=== PATIENT | female | born 1980 | race Caucasian/White ===

== ENCOUNTER 2024-03-02 08:00 | Outpatient (RCR) | payer BC, SELFPAY ==
--- NOTE | 2024-03-02 09:00 | BH.SGPN.GN ---
Behaviors/Verbalizations/Mental Status: [] Eye contact is good. Motor activity is appropriate. Appearance is casual. Speech is Appropriate. Mood is anxious. Affect is congruent. Thoughts are linear and logical. No evidence of psychosis. Reviewed daily check in sheet and no reports of suicidal ideations or intent. Client Response/Progress/Benefit: [] Pt participated at times during the group discussions. Attentive. Today is pt?s first day in IOP. She briefly discussed her reasons for entering IOP. She reports significant anxiety, panic attacks, and depression which has been impacting her functioning at home and work. Currently on leave from work due to mental health. Limited benefit as this was pt?s first day in IOP. Will continue in IOP to maintain safety, prevent decompensation/re-admission to psych unit, and improve functioning. Narrative Note: []
--- NOTE | 2024-03-02 10:15 | BH.SGPN.GN ---
Behaviors/Verbalizations/Mental Status: []Eye contact is good. Motor activity is appropriate. Appearance is neat Speech is Appropriate. Mood is anxious. Affect is congruent. Thoughts are linear and logical. No evidence of psychosis. Client Response/Progress/Benefit: [] Pt was engaged and an active participant throughout, providing input and taking notes. Participated throughout interactive discussion on defining anxiety and identifying cognitive and physiological symptoms of anxiety. Group discussed the role of anxiety on isolation, avoidance, and who this emotion impacts their ability to start and complete activities/goals. Pt identified their physical/physiological signs of anxiety (i.e. sweating, heart palpitations, heightened awareness, and dizziness). Pt identified safety behaviors (i,e reassurance seeking, pacing, and re-reading.) Benefited from increased awareness and insight on anxiety and its impact. Will continue in IOP to prevent decompensation/re-hospitalization, gain healthy coping skills, and improve daily functioning. Narrative Note: []
--- NOTE | 2024-03-02 11:15 | BH.SGPN.GN ---
Behaviors/Verbalizations/Mental Status: []Pt alert and oriented, neatly dressed and groomed. Eye contact good. Motor activity appropriate. Speech within normal limits. Affect congruent, mood euthymic and anxious. Thoughts linear, logical, no signs of hallucinations or delusions. Client Response/Progress/Benefit: [] Pt was an active participant AEB pt providing input and listening attentively to peers. Attentive during psychoeducation on mindfulness coping skills and their impact on reducing anxiety and improving overall mental health wellness. Group was able to identify self-soothing and mind-based coping skills which included: 5-senses, meditation, deep breathing, TIPP, thought challenging, and progressive muscle relaxation. Pt also participated with peers in practicing mindfulness skills in session including deep breathing. Pt would like to work on avoiding numbing activities to manage anxiety. Appeared to benefit from increasing repertoire of anxiety reduction skills. Pt will continue in IOP tx to prevent decompensation, improve daily functioning, and gain healthy coping skills. Narrative Note: []
--- NOTE | 2024-03-02 15:00 | BH.COMM_ITS ---
Communication Note Communication with Client Communication Note: Met with pt to complete initial paperwork and administer the CSSR-S screening and risk assessment. Pt is mild risk as pt denies any active SI, plan, or intent or thoughts of currently. Pt had passive suicidal ideations when she was having a severe panic attack in early January, but pt stated ?I didn?t even want to do it I just wanted my anxiety to stop.? Pt?s as changed the locks to their gun safe and pt does not have access to this. Pt future oriented and her children and are her protective factors. Pt has no history of attempts of self-harm. Pt a Discussed case with Dr. Lee and pt will be admitted to [facility] tx with a diagnosis of Panic Disorder F 41.0
--- NOTE | 2024-03-03 09:35 | BH.NA ---
Physical Data Vital Signs Pulse Rate: 61 Blood Pressure: 132/85 Height/Weight Height: 1.78 m Weight:: 70.307 kg Weight in Pounds: 155.0 lbs Current Medication Compliance Medication Compliance Do you take your medication as prescribed?: Yes Nutritional History Appetite Nutritional Instructions: Describe your appetite:: Good and Fair Additional nutritional information:: Client denies recent change in weight, but does state her appetite is slightly decreased. Functional Assessment Sleep Pattern Describe any problems with sleeping: Client states she is sleeping about 6-8 hours per night. Sensory/Communication Assess Communication Problems Do you have difficulty understanding what people are saying?: No Learning Assessment Education What is your level of education?: Master Degree Medical Problems/History Pain Assessment Do you have acute or chronic pain?: No Surgical History Surgical History Have you had any surgeries? If so, list type and date:: Yes (hysterectomy in 2019) Substance Abuse Substance Abuse Please describe substance abuse in the last 30 days:: Client denies alcohol, substance or tobacco use. Client states she drinks caffeine two times per week. Mental Status Summary Mental Status Significant Findings/Observations on Appearance and Mood:: Client is alert and oriented x 4. Client is casually groomed with good hygiene. Client is cooperative with assessment. Client makes good eye contact. Client's voice has normal rate and volume. Client has an appropriate affect. Client makes logical associations and has normal processing. Client denies SI. Suicide Assessment Suicidal Ideation Are you currently or have you been suicidal in the past?: No (had a fear she might hurt herself, but no active SI) Suicidal Intentional Rating Scale (SIRS): No suicidal thoughts (past or present) Physician Notification Past Psychiatric History MH Treatment Hx Past Psychiatric Medications:: Celexa Age of first mental health symptoms: Client first took medication for her mental health around age 40. Describe (age, circumstance, etc) any past hospitalizations: 02/16/24-02/17/24 at [facility] after going to the ER after a panic attack and fearing she might hurt herself, denies active SI or plan or intent Current providers for mental health treatment (counselor, psychiatrist, egg caser, etc.): [place] via telehealth for counseling, an [facility] provider at [facility] [place] for psychiatry Fall Risk Assessment Age Age: Less than 60 Mental Status Mental Status: Willing & able to ask for assistance when needed Physical Status Physical Status: No problems Impairments Impairments: None Elimination Elimination: Continent AND independent Gait or Balance Gait or Balance: Walks independently Hx of Falls History of falls in the past 6 months: No known history Medications/Substances Psychotropics:: Antidepressants Medications/substances used within the past 24 hours or ordered to administer: 1-2 of the medications/substances listed above Total Score Total Points:: 1 RN Summary of Impressions Impressions Recommendations Impressions: Psychiatric Issues: 1. Major depressive disorder, recurrent, moderate 2. Panic disorder 3. Generalized anxiety disorder 4. Menopause with recent onset 5. Work issues Level of Care How do the client's current symptoms and functional deficits support need for this level of care?: Client was referred to IOP after a recent hospitalization 02/16/24 at [facility]. Client states she has had a few panic attacks that have been intense and hard to come out of over the last several months. Client was admitted to [facility] after a panic attack where she had fears she might hurt herself. Client states after she has a panic attack, her anxiety continues to be high because she is afraid she will have another panic attack that is intense and hard to come out of. Client states she almost had a panic attack 4 days ago, but it was not as intense as the previous ones. Client does report some isolation, ruminations, and some racing thoughts. Client states her biggest stressor is balancing a routine in life between work and her kids. Client denies SI. IOP will promote gains and prevent further decompensation while providing social support and skills training.
[2024-03-03 10:00] VITALS: BP 132/85; PULSE 61
--- NOTE | 2024-03-03 11:10 | BH.SGPN.GN ---
Behaviors/Verbalizations/Mental Status: []Client alert and oriented, casually dressed and groomed. Eye contact fair. Motor activity appropriate. Speech within normal limits. Affect congruent, mood anxious. Thoughts linear, logical, no signs of hallucinations or delusions. Client Response/Progress/Benefit: []Pt was engaged throughout AEB contributing to group discussion and activity. Group processed how they each responded to the intentionally difficult task they were asked to completed and described the physical and emotional anger cues experienced throughout, as well as strategies used for managing these frustrations. Pt contributed as group brainstormed healthy coping skills for better managing anger which included: music, walking/exercise, taking a break, healthy venting, avoiding unnecessary stressors, reflection, and journaling. Pt cooperative with working in small groups to identify what strategy wants to work on to help interrupt personal anger cycle. Pt to continue IOP to improve view of self, promote use of healthy coping skill, and prevent decompensation.
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
--- NOTE | 2024-03-03 13:06 | BH.DR.ITP ---
Initial Treatment Plan Patient Information Visit Information: ADMISSION DATE: EXPECTED LOS: 4-6 weeks Problems/Symptoms Problem #1:: Depression Symptom:: Sadness, hopelessness, guilt, low energy, decreased concentration, recent passive thoughts of Problem #2:: Anxiety Symptom:: Worry, rumination, panic attacks
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
--- NOTE | 2024-03-03 15:04 | BH.MTP_ITS ---
Master Treatment Plan Patient Information Program Physician:: Dr. Macarena Lee Primary Therapist:: Isabella SIMMONS Psychiatric Diagnoses Psychiatric Diagnoses:: Major depressive disorder, recurrent, moderate; Panic disorder F 41.0; Generalized anxiety disorder Diagnosis Code(s):: F 41.0 Estimated LOS Estimated LOS (in weeks):: 6 Problem/Goal #1 Problem/Goal #1 Stated Goal:: Will reduce anxiety and panic symptoms through increasing emotional regulation and distress tolerance skills Description of Barriers: Pt recognizes that she is tends to be self-critical, pushes herself too her max, and is a perfectionist. Pt also struggles with believing she is only worthy if she is productive, which leads to pt feeling guilty or burnout. Pt is also the caregiver in her family both as an adult and as a child, so pt often puts her own needs aside to help others. Functional Impact: Pt is a 43-year-old female with a history of MDD and MANUEL who was referred to [facility] tx following a psych admission on 02/16/24 to [facility]. Pt voluntarily admitted herself due to a severe panic attack which led to fear that pt would harm herself. Pt has no history of SI or suicide attempts. Pt reports her anxiety and depression symptoms have been worsening over the past several months and are no longer managed with just medication alone. Pt currently endorses a depressed mood, increased appetite, isolative behaviors, low energy, and excessive guilt. Pt also endorses severe anxiety with panic attacks, racing thoughts, irritability, and fear of going crazy. Pt is currently taking time off work using FMLA and pt's symptoms are impacting her overall functioning. Goal Relevant Strengths/Supports: Pt is intelligent, has good support at home, and is able to take time off work to focus on her mental health. Objectives Objective #1: Stated Objective: Pt will increase ability to manage stressors and anxiety by gaining 2-3 distress tolerance skills. Interventions: Through group and individual therapy, pt will learn various coping skills to help manage stress and anxiety. Therapist will utilize DBT distress tolerance skills to increase awareness and give pt tools to more effectively manage anxiety. Therapist will provide psychoeducation on emotional regulation and help pt identify unhealthy coping skills he wants to change. Discharge Criteria: Pt will have accomplished this goal when can report improved ability to manage stressors and identify at least 2 distress tolerance skills. Target Date: 04/13/24 Review Date: 03/23/24 Status: open Objective #2: Stated Objective: Pt will identify 2-3 anxiety and panic triggers and 2 coping skills to use when feeling anxious or overwhelmed to manage anxiety as shown by reducing DSM-5 scores for anxiety Interventions: Therapist will provide education on anxiety, avoidance behaviors, and maintenance cycles. Therapist will help pt explore personal symptoms and warning signs of anxiety and irritability. Therapist will teach pt coping skills to improve emotional regulation, mindfulness, and distress tolerance to help pt cope with anxiety in the moment. Discharge Criteria: Pt will have accomplished this goal when he can identify at least 2 triggers and report using 2 coping skills to manage anxiety and irritability. Additionally, pt will have accomplished this goal AEB reduction of DSM-5 scores for anxiety. Target Date: 04/13/24 Review Date: 03/23/24 Status: open Problem/Goal #2 Problem/Goal #2 Stated Goal:: Pt will decrease depressive symptoms, inappropriate guilt, worthlessness, and negative self-talk. Description of Barriers: Pt recognizes that she is tends to be self-critical, pushes herself too her max, and is a perfectionist. Pt also struggles with believing she is only worthy if she is productive, which leads to pt feeling guilty or burnout. Pt is also the caregiver in her family both as an adult and as a child, so pt often puts her own needs aside to help others. Functional Impact: Pt is a 43-year-old female with a history of MDD and MANUEL who was referred to [facility] tx following a psych admission on 02/16/24 to [facility]. Pt voluntarily admitted herself due to a severe panic attack which led to fear that pt would harm herself. Pt has no history of SI or suicide attempts. Pt reports her anxiety and depression symptoms have been worsening over the past several months and are no longer managed with just medication alone. Pt currently endorses a depressed mood, increased appetite, isolative behaviors, low energy, and excessive guilt. Pt also endorses severe anxiety with panic attacks, racing thoughts, irritability, and fear of going crazy. Pt is currently taking time off work using FMLA and pt's symptoms are impacting her overall functioning. Goal Relevant Strengths/Supports: Pt is intelligent, has good support at home, and is able to take time off work to focus on her mental health. Objectives Objective #1: Stated Objective: Pt will learn and utilize 2-3 healthy coping strategies to better manage depressive symptoms as shown by a decrease of DMS-5 symptoms for depression. Interventions: Through group and individual sessions, therapist will help pt identify triggers and warning signs of depression and guilt including emotional, physical, and behavioral changes. Therapist will teach pt various coping skills to manage symptoms and give pt tangible resources to use to regulate emotions. Therapist will use cognitive restructuring techniques and help pt gain awareness of negative thoughts that reinforce guilt and depression. Therapist will provide psychoeducation on maintenance cycles and help pt learn ways to break unhealthy maintenance cycles. Therapist will help pt incorporate behavioral activation and assist pt in setting SMART goals. Discharge Criteria: Pt will have met this goal when can report learning and using at least 2 coping skills to manage depressive symptoms and reduce isolation. Additionally, pt will have met this goal when pt's DSM-5 scores for depression decrease. Target Date: 04/13/24 Review Date: 03/23/24 Status: open Objective #2: Stated Objective: Pt will identify at least 2-3 negative self-talk messages used to reinforce negative core beliefs, worthlessness, and isolation and replace thoughts with balanced, realistic messages. Interventions: Therapist will help pt identify distorted, negative beliefs about self and replace with more realistic, affirmative messages. Therapist will use CBT and DBT to help pt increase insight to the connection between thoughts, emotions, and behaviors. Therapist will encourage pt to practice thought challenging. Discharge Criteria: Pt will have achieved this goal when can verbalize at least 2 cognitive distortions and effectively replace those thoughts with affirmative messages. Target Date: 04/13/24 Review Date: 03/23/24 Status: open
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
--- NOTE | 2024-03-04 09:05 | BH.SGPN.GN ---
Behaviors/Verbalizations/Mental Status: [] Pt alert and oriented, casually dressed and groomed. Eye contact good. Motor activity appropriate. Speech within normal limits. Affect congruent, mood depressed and anxious. Thoughts linear, logical, no signs of hallucinations or delusions. Reviewed pt?s symptom tracker, no risk for suicidal ideation, plan, or intent 03/03/24 Client Response/Progress/Benefit: []Pt was an active participant in group discussions. Attentive. Able to identify mental health wins including making it through a difficult group topic yesterday and allowing herself to actually be vulnerable in doing so. Shared feeling proud of herself for returning today. Additional win noted as opening up more to her about her mental health and having him respond in supportive and encouraging ways. Stressor noted as having her mom in town visiting. Pt explained they have a complicated relationship and she struggles with maintaining boundaries with her mother. Benefited from group support, encouragement, and feedback. Did well to identify ways to begin working on communicating her boundaries/needs. Will continue in IOP to prevent decompensation, improve daily functioning, and increase boundary setting/communication skills. Narrative Note: []
--- NOTE | 2024-03-04 10:10 | BH.SGPN.GN ---
Behaviors/Verbalizations/Mental Status: [] Eye contact is good. Motor activity is appropriate. Appearance is casual. Speech is Appropriate. Mood is anxious. Affect is congruent. Thoughts are linear and logical. No evidence of psychosis. Client Response/Progress/Benefit: [] Pt was an active participate AEB listening attentively to others, participating in group discussions, and taking notes throughout. Participated as the group defined emotion dysregulation and identified ways we can hurt others or sabotage self by not regulating our emotions. Participated with peers to identified ways emotions impact communication which included; shutting down, being irritable/short with others, difficulty focusing/staying on topic, confusion, zone out, and being aggressive or dismissive to others. Participated during group activity. Pt benefited from session by gaining an increased understanding on the importance of managing emotions to improve daily functioning. Will continue IOP tx to prevent decompensation/re-admission, increase healthy coping, and improve functioning to return to work. Narrative Note: []
--- NOTE | 2024-03-04 11:15 | BH.SGPN.GN ---
Behaviors/Verbalizations/Mental Status: []Pt alert and oriented, casually dressed and appropriately groomed. Eye contact good. Motor activity appropriate. Speech within normal limits. Affect congruent, mood euthymic and anxious. Thoughts linear, logical, no signs of hallucinations or delusions. Client Response/Progress/Benefit: [] Pt engaged in session AEB Pt listening attentively to peers and providing input. Attentive during psychoeducation on 4 zones of regulation. Pt able to identify feelings and behaviors for each zone. Pt identified coping skills one can use to support self in each zone. Pt reported she most often is in the yellow zone because feels constant worry and racing thoughts. Pt stated coping skills she wants to practice to help in watch in each zone include: going for a walk, having a wins list, and progressive muscle relaxation. Benefited from increased education on zones of regulation or stages of alertness for emotions and healthy coping skills to use for each zone. Will continue IOP tx to increase consistent use of healthy coping skills, improve view of self, and prevent decompenation.
--- NOTE | 2024-03-09 10:10 | BH.SGPN.GN ---
Behaviors/Verbalizations/Mental Status: []Client alert and oriented, casually dressed and groomed. Eye contact good. Motor activity appropriate. Speech within normal limits. Affect congruent, mood anxious and content. Thoughts linear, logical, no signs of hallucinations or delusions. Client Response/Progress/Benefit: [] Pt responded well to session AEB actively participating throughout group. Pt was attentive throughout group activity discussing famous individuals and how they overcame failure to be successful. Pt helped group identify how fear of failure can impact mental health and relationships. Pt personally identified it leads to pt feeling afraid of disappointing others and then taking on too much. participated in experiential activity, working with group members to problem solve. Appeared to benefit from increased knowledge of what causes fear of failure and how it impacts people. Will continue IOP tx to prevent decompensation, improve daily functioning, and increase boundary setting skills. Narrative Note: []
--- NOTE | 2024-03-09 10:53 | BH.MDN ---
Multi-Disciplinary Note Note 60-min Individual: Time Started:: 09:30 Date: 03/09/24 Purpose of session/treatment goals addressed:: To work on anxiety management skills and increase self-awareness of symptoms. Eye Contact:: Good Motor Activity:: Appropriate Appearance:: Neat Speech:: Appropriate and Rambling Mood:: Anxious Affect:: Congruent Thoughts:: Logical, Racing and No evidence of hallucinations/delusions noted Staff Interventions:: thought challenging, psychoeducation on: (triggers, warning signs, and coping skills for anxiety), CBT techniques, mindfulness skills, strengths perspective and goal setting Client Response:: Pt responded well to session, open to meeting with therapist. Pt requested to meet with therapist today because pt wanted perspective of an event pt wants to attend this weekend. 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 Discussed this and pt was reminded that ultimately it is her decision, but we can look at pros, cons, and develop a coping skills plan. Pt shared her and family have been trying to get pt not to go which makes me want to prove them wrong. Pt reported she wants to go and see how she responds, but she is terrified to have a panic attack. Discussed identifying triggers, warning signs, and coping skills pt can utilize so pt either prevents a panic attacks or has a plan for if it happens. Pt admits that she is a perfectionist, so she is having a hard time adjusting her expectations for herself and what she should be capable of doing. Pt stated she is already feeling like a failure for not being able to run the entire time, but she was receptive to thought challenging. Pt also did well with identify triggers. Pt reports she struggles with knowing her warning signs as pt feels she pushes it down until it's bad and then it's hard to get back control. Pt was able to develop an anxiety scale with specific behaviors and thoughts she has when her anxiety is mild, moderate, and panic. Pt also encouraged to identify a plan for when I need to leave which pt shared will help her and her set boundaries if needed. Pt was encouraged to share this with her and practice some of the calming skills discussed before the day of the event. Risks/Concerns:: Pt denies any suicidal ideations, plan, or intent. Pt denies any thoughts of . Progress Toward Goals/Plan:: Pt is consistent with attendance and doing well in the group settings. Pt's second week of IOP tx and reports benefitting from the topics. Pt's symptoms of anxiety and depression have not changed much since admission. Pt's anxiety continues to interfere with her daily functioning and pt is terrified she will have a panic attack this weekend at an event. Pt is receptive to skills talked about today and will see therapist later this week to check-in before her event. Pt will continue IOP tx to prevent decompensation, improve daily functioning, and increase healthy coping skills. Time Stopped:: 10:30
--- NOTE | 2024-03-09 11:10 | BH.SGPN.GN ---
Behaviors/Verbalizations/Mental Status: []Client alert and oriented, neatly dressed and groomed. Eye contact good. Motor activity appropriate. Speech within normal limits. Affect congruent, mood euthymic. Thoughts linear, logical, no signs of hallucinations or delusions. Client Response/Progress/Benefit: [] Pt responded well to session, engaged in the experiential activity and attentive throughout group processing. Pt reported fear of failure has kept Pt from trying new things, stopping at her limits, and setting boundaries. Pt completed fear of failure worksheet and was able to identify thoughts and behaviors that reinforce personal fear of failure including people pleasing, not asking for help, and self-judgment. Pt participated in small group discussion regarding strategies to overcome fear of failure. Identified wanting to work on thinking in the ?braswell.? Appeared to benefit from increased knowledge of strategies to combat fear of failure and gaining self-awareness. Pt will continue IOP tx to prevent decompensation, gain distress tolerance skills, and improve daily functioning. ?? Narrative Note: []
--- NOTE | 2024-03-11 09:00 | BH.SGPN.GN ---
Behaviors/Verbalizations/Mental Status: [] Eye contact is good. Motor activity is appropriate. Appearance is casual. Speech is Appropriate. Mood is anxious. Affect is congruent. Thoughts are linear and logical. No evidence of psychosis. Reviewed daily check in sheet and no reports of suicidal ideations or intent. Client Response/Progress/Benefit: [] Pt was an active participant in group discussions. Attentive. Pt reports being ?worried?. She is planning to attend an event over the weekend which she suspects will increase her anxiety. Fearful about having panic attacks and regressing. Elaborated on the reasons she wants to attend the event as well as her fears. Her family has been encouraging her to not attend the event however she is hoping to use it as a way to practice new skills. Progress noted. Benefited from group support, encouragement, and feedback. Will continue in IOP to prevent decompensation, stabilize anxiety, and improve functioning to return to work. Narrative Note: []
--- NOTE | 2024-03-11 10:15 | BH.SGPN.GN ---
Behaviors/Verbalizations/Mental Status: [] Pt alert and oriented, appropriate grooming/appearance. Eye contact good. Motor activity appropriate. Speech within normal limits. Affect congruent, mood depressed and anxious. Thoughts linear, logical, no signs of hallucinations or delusions. Client Response/Progress/Benefit: [] Pt was an active participant in group discussions. Attentive during psychoeducation. Contributed during interactive discussions in which peers attempted to define crisis. Group identified examples of potential crisis. Group also worked together to identify unhealthy responses to crisis which included lashing out, isolation, self-harm, and distraction. Pt identified personal warning signs for crisis as avoidance, decreased self-care, and overcommitting. Benefited from increased understanding of crisis and awareness of personal responses to crisis. Pt will continue IOP tx to increase functioning and prevent decompensation. Narrative Note: []
--- NOTE | 2024-03-11 11:15 | BH.SGPN.GN ---
Behaviors/Verbalizations/Mental Status: []Pt alert and oriented, appropriate grooming/appearance. Eye contact good. Motor activity appropriate. Speech within normal limits. Affect congruent, mood anxious. Thoughts linear, logical, no signs of hallucinations or delusions. Client Response/Progress/Benefit: []Pt was an active participant in group discussions. Attentive during psychoeducation. In small group pt along with peers developed an active plan for their crisis warning signs. Pt identified three crisis warning signs as well as an action plan for each. One crisis warning sign was neglecting self-care. Pt identified coping skills to help with this such as: opposite action, taking a shower, drying her hair, using nice lotion, and dressing in clothes instead of sweats or scrubs. ?Benefited from increased awareness of crisis warning signs and by developing crisis intervention strategies. Will continue in IOP to improve view of self, challenge distortions, and prevent decompensation.
--- NOTE | 2024-03-12 09:00 | BH.SGPN.GN ---
Behaviors/Verbalizations/Mental Status: [] Eye contact is good. Motor activity is appropriate. Appearance is casual. Speech is Appropriate. Mood is anxious. Affect is congruent. Thoughts are linear and logical. No evidence of psychosis. Reviewed daily check in sheet and no reports of suicidal ideations or intent. Client Response/Progress/Benefit: [] Pt was an active participant in group discussions. Attentive. Symptom tracker notes 4/5 for anxiety and 2/5 for depression. Emotion is more anxious. No specific trigger to increase anxiety today. Shared a panic moment yesterday however was proud of herself for utilizing strategies to manage which allowed her not to isolate. Increased confidence in her ability to work through panic moments. Progress noted. Benefited from group support, encouragement, and feedback. Will continue in IOP to maintain safety, prevent decompensation/re-admission to psych unit, and to improve functioning to return to work. Narrative Note: []
--- NOTE | 2024-03-12 10:10 | BH.SGPN.GN ---
Behaviors/Verbalizations/Mental Status: [] Pt alert and oriented, casually dressed and groomed. Eye contact good. Motor activity appropriate. Speech within normal limits. Affect congruent, mood anxious and depressed. Thoughts linear, logical, no signs of hallucinations or delusions. Client Response/Progress/Benefit: [] Pt participated during small group discussions. Attentive during psychoeducation about defense mechanisms. Showed engagement during small group discussions and helped group identify which defense mechanisms were maladaptive, adaptive, or ?somewhere in the braswell.? Noted she struggles with intellectualization and anticipation defense mechanisms. Pt worked with small group on identifying how each defense mechanism can impact mental health and gave examples. ?Seemed to benefit from gaining awareness about the different defense mechanisms. Pt to continue IOP tx to prevent decompensation, stabilize mood, increase healthy coping, and improve functioning to return to work. Narrative Note: []
--- NOTE | 2024-03-12 11:10 | BH.SGPN.GN ---
Behaviors/Verbalizations/Mental Status: []Pt alert and oriented, casually dressed and groomed. Eye contact good. Motor activity appropriate. Speech within normal limits. Affect congruent, mood euthymic and anxious. Thoughts linear, logical, no signs of hallucinations or delusions. Client Response/Progress/Benefit: []Pt responded well to session, participating in activity and small group discussion. Group reviewed the rest of the defense mechanisms and discussed how these are adaptive, maladaptive, or somewhere in the braswell. Pt participated in the experiential activity which encouraged pts to draw a castle that portrayed their different defense mechanisms. Pt's defense mechanisms included rationalization, anticipation, displacement, denial, and sublimation. Pt shared wanting to work on her displacement as pt recognizes she takes her emotions out at home. Pt listened to crusher machine operator teach different skills to help pt?s cope with or change their defense mechanisms. Pt appeared to benefit from gaining insight to the different defense mechanisms and learning coping skills. Pt will continue IOP tx to prevent decompensation, increase distress tolerance, and improve self-compassion. Narrative Note: []
--- NOTE | 2024-03-12 14:31 | BH.MDN_ITS ---
Multi-Disciplinary Note Note 30-min Individual: Time Started:: 08:30 Date: 03/12/24 Purpose of session/treatment goals addressed:: To work on goal #1 of pt's tx plan and to review skills from session earlier this week. Eye Contact:: Good Motor Activity:: Appropriate Appearance:: Neat Speech:: Appropriate Mood:: Anxious Affect:: Congruent Thoughts:: Linear, Logical and No evidence of hallucinations/delusions noted Staff Interventions:: thought challenging, CBT techniques, mindfulness skills, strengths perspective, goal setting (practice distress tolerance over the weekend) and taught coping skills (dialectical thinking.) Client Response:: Pt responded well to session, open to meeting with therapist. Pt reports she is not feeling great today because pt talked to her about her anxiety coping skills plan and he did not seem convinced. Pt stated belief that her may be feeling helpless because he was not included in the development of the plan and he needs tangible things to help pt. Pt feels able to communicate with him about what specific things he can do for her and pt reminded to trust herself this weekend. Also discussed pt practicing self-compassion and dialectical thinking this weekend. Pt recognizes that even though she knows she will not be running the entire race, she will still be negative with herself. Pt encouraged to remind herself that two things can be true, pt can be doing her best and it be less than normal. Pt has awareness of her perfectionistic tendencies and how these reinforce low self-worth and anxiety. Pt receptive to working on distress tolerance skills which would include pt identifying things she can start taking less of an active role in around the house. Pt shared she can start doing less micromanaging which pt feels will help everyone in the house. Pt brought up some inappropriate guilt she feels and she was receptive to challenging this as well. Reviewed coping skills plan for the race this weekend. Risks/Concerns:: Pt denies any suicidal ideations, plan, or intent. Pt denies any thoughts of . Progress Toward Goals/Plan:: No significant changes from session on 03/09/24. Pt reported benefitting from creating a plan last session for the event this weekend, but pt is still anxious about it. Pt receptive to thought challenging techniques today and from processing her emotions. Pt will continue IOP tx to prevent decompensation, improve daily functioning, and increase self- compassion techniques. Time Stopped:: 09:00
--- NOTE | 2024-03-17 09:05 | BH.SGPN.GN ---
Behaviors/Verbalizations/Mental Status: [] ?Pt alert and oriented, casually dressed and groomed. Eye contact good. Motor activity appropriate. Speech within normal limits. Affect congruent, mood depressed. Thoughts linear, logical, no signs of hallucinations or delusions. Reviewed pt?s symptom tracker, no risk for suicidal ideation, plan, or intent 03/17/24 Client Response/Progress/Benefit: []Pt receptive of session, engaged throughout and appearing to benefit from group support and encouragement. Identified current mental health wins as getting to group today despite her mood and not feeling like it. Shared that she has started to notice herself falling back into old patterns of behavior and although this is a stressor, she recognizes that the awareness is a win as it allows her to adjust in order to prevent continuing to engage in those habits. Benefited from group supportive feedback, encouragement, and support. Recommended continued IOP tx to prevent decompensation, improve mood stability, and promote skill application. Narrative Note: []
--- NOTE | 2024-03-17 10:15 | BH.SGPN.GN ---
Behaviors/Verbalizations/Mental Status: []Pt alert and oriented, neatly dressed and groomed. Eye contact good. Motor activity appropriate. Speech within normal limits. Affect full, mood anxious. Thoughts linear, logical, no signs of hallucinations or delusions. Client Response/Progress/Benefit: []Pt participated in group discussion. Group worked together to identify benefits of healthy relationships which included encouragement, motivation, longer lifespan, connectedness and trust. Group identified factors that lead to unhealthy relationships which included low self-esteem, trauma, use of unhealthy skills, parent's negative relationship growing up, and co-dependence. Pt reports she has entered unhealthy relationships because you're told that it's family and that's just how they are. Benefited from increased insight and awareness of benefits of healthy relationships and factors that contribute to unhealthy relationships. Will continue in IOP to promote mood stability, increase distress tolerance skills, and improve self-compassion. Narrative Note: []
--- NOTE | 2024-03-17 11:15 | BH.SGPN.GN ---
Behaviors/Verbalizations/Mental Status: [] Pt alert and oriented, casually dressed and groomed. Eye contact fair. Motor activity appropriate. Speech within normal limits. Affect full, mood euthymic, Thoughts linear, logical, no signs of hallucinations or delusions. Client Response/Progress/Benefit: [] Client responded well to session, engaged and taking notes throughout. Worked with group to connect components of the experiential activity with characteristics of healthy and unhealthy relationships. Attentive during psychoeducation about characteristics of healthy, unhealthy, and abusive relationships. Client reported she would like to continue to improve with communication, honesty, and equal decisions in relationships. Appeared to benefit from identifying current healthy relationship attributes and an area client wants to work on to build healthier relationships. Client to continue IOP to improve distress tolerance, improve healthy coping skills, and prevent decompensation.
--- NOTE | 2024-03-17 11:59 | PCM.BH.PN ---
Progress Note Progress Note: History of Present Illness/Interim History: The patient is a 43-year-old female with a history of depression, anxiety and panic attacks who is seen in follow-up at the [facility] behavioral health [facility]. I last saw the patient 2 weeks ago and at that time her Effexor was changed from immediate release to extended release and the dose was increased to 75 mg daily from 50 mg. The patient states that she is tolerating the medication well and feels that her anxiety and mood have improved somewhat. She denies any hopelessness currently. Her sleep has returned to 6 to 8 hours a night and she is feeling better. She still has occasional sadness and guilt but much less frequently than before. She denies hopelessness now. She is still stressed by the recent onset of menopause and her children's return to school. She is not taking the Xanax except she took half a tablet 4 and 5 days ago at the [facility] [employer] spong[employer] that she was at due to anxiety but otherwise is not requiring it. Her anxiety is much less lately and her panic attacks are occurring less than once every 2 weeks now overall. She is still enjoying spending time with her daughters and doing crafts. She denies passive thoughts of , thoughts of self-harm, suicidal ideation, plan for suicide, homicidal ideation, hallucinations or delusions. Current Psychiatric Medications: [] Effexor XR 75 mg p.o. every morning (dose increased 2 weeks ago); Xanax 0.5 mg (taking this less than once every 2 weeks now). Mental Status Examination: [] The patient is a tall and slender 43-year-old female who appears normal or younger than stated age and is casually dressed and groomed with good hygiene. She is ambulatory with a normal gait and has no psychomotor agitation or retardation. She is cooperative and pleasant during the interview. Speech is normal rate and rhythm and fluent with no pressure and eye contact is good. Mood is mildly depressed and anxious. Affect is mildly constricted. Thought process is goal-directed and organized. Thought content: The patient is feels she is learning valuable skills in the IOP and is enjoying the program. There is no evidence of passive thoughts of , suicidal ideation, homicidal ideation, plan for suicide, hallucinations, delusions. Reality testing is intact. Intelligence is above average. Judgment is intact. Insight is good. Impulsivity is low. Diagnoses: [] 1. Major depressive disorder, recurrent, moderate 2. Panic disorder 3. Generalized anxiety disorder 4. Recent onset of menopause 5. Work issues Plan: [] The patient will continue the IOP and behavioral health at [facility] as the structure, support, education and group therapy will hopefully prevent worsening of the patient's symptoms. She felt safe during the interview and if it anytime she does not feel safe she agrees to let us know or go to the emergency room. No other medication changes were made today and refill was given for her Effexor XR. The patient will continue to follow-up with her outpatient providers and I will see the patient in follow-up while she is in the IOP.
--- NOTE | 2024-03-18 09:00 | BH.SGPN.GN ---
Behaviors/Verbalizations/Mental Status: []Pt alert and oriented, neatly dressed and groomed. Eye contact good. Motor activity appropriate. Speech within normal limits. Affect congruent, mood frustrated. Thoughts linear, logical, no signs of hallucinations or delusions. Reviewed pt?s symptom tracker, no risk for suicidal ideation, plan, or intent 03/18/24 Client Response/Progress/Benefit: []Pt was an active participant in group discussions. Attentive. Able to identify mental health wins including going to the grocery store and not getting an entire list which is challenging for pt. Pt also used opposite action yesterday when she was feeling irritable and anxious. Pt's stressor today is that she is judging herself and pt expects herself to be better already. Pt stated she is feeling frustrated this morning. Pt receptive to feedback from peers which pt reported was helpful. Progress noted. Benefited from group support, encouragement, and feedback. Will continue in IOP to prevent decompensation, improve daily functioning, and reduce negative thinking patterns. Narrative Note: []
--- NOTE | 2024-03-18 10:10 | BH.SGPN.GN ---
Behaviors/Verbalizations/Mental Status: [] Eye contact is good. Motor activity is appropriate. Appearance is casual. Speech is Appropriate. Mood is content. Affect is congruent. Thoughts are linear and logical. No evidence of psychosis. Client Response/Progress/Benefit: [] Pt receptive of session, actively engaged throughout AEB taking notes, providing input, and contributing in small group discussion. Appeared to connect with group topic of automatic thoughts and cognitive distortions, as well as the impact of thought patterns on mental health, coping behaviors, and relationships. This particular group is very heavy on psychoeducation and pt appeared to connect with distortions and how they can impact functioning. Identified struggling with mind reading distortion. Pt appeared to benefit from gaining insight on distorted thinking patterns and how this impacts overall mental health. Will continue IOP to increase healthy thought patterns, improve ability to function, and prevent decompensation. Narrative Note: []
--- NOTE | 2024-03-18 14:00 | BH.MDN ---
Multi-Disciplinary Note Note 45-min Individual: Time Started:: 11:05 Date: 03/18/24 Purpose of session/treatment goals addressed:: To work on goal #2 of pt's tx plan by addressing negative thought patterns. Eye Contact:: Good Motor Activity:: Appropriate Appearance:: Neat Speech:: Soft Mood:: Anxious and Depressed Affect:: Congruent (tearful) Thoughts:: Linear, Other (cognitive distortions) and No evidence of hallucinations/delusions noted Staff Interventions:: thought challenging, psychoeducation on: (core beliefs), CBT techniques, mindfulness skills, strengths perspective, goal setting, taught coping skills and other (worked on core beliefs) Client Response:: Pt responded well to session, open to meeting with therapist. Pt reports feeling depressed and she was tearful today. Pt stated I think this is just my baseline, maybe I'm just a depressed person. Pt shared she thinks this is part of the reason she schedules things and is so extra because it gives pt something to look forward to and pour her energy into. Pt recognizes that this is both a good trait to have (planning and being productive) and also a trait that can be toxic. Pt receptive to learning about core beliefs today as pt has awareness that her upbringing and view of self has impacted pt's self-worth. Pt recognizes that she only views herself as worthy if she is doing something for others or if she is productive. Pt stated her mother often reinforced these negative core beliefs of I'm not good enough the way I am and I'm not wanted. Pt gave herself credit for not passing these beliefs onto her own children by breaking the cycle that pt lived through. However, pt also knows that she will have to do even more work before she reframes her own thinking. Pt learned about how one develops new core beliefs and pt identified two she felt able to adjust. Pt is going to work on developing a new core belief of what I'm doing is enough and it's okay to be average. Pt receptive to gathering evidence for her new core beliefs and how to go about gathering evidence. Pt is going to work on reducing her to-do list and allowing herself to do nonproductive things so pt can see that her worth is not just from doing things for others. Risks/Concerns:: Pt denies any suicidal ideations, plan, or intent. Pt denies any thoughts of . Progress Toward Goals/Plan:: Pt making progress with gaining insight and beginning to challenge negative thinking patterns. However, pt's anxiety and depression symptoms have not reduced significantly. Pt reports her negative self-talk and all or nothing thinking patterns continue to keep pt stuck. Pt also has numerous negative core beliefs that lead to pt over-compensating and reinforce her people pleasing. Pt receptive to working on these and will do this for homework. Pt will continue IOP tx to prevent decompensation, improve daily functioning, and increase distress tolerance skills. Time Stopped:: 11:56
--- NOTE | 2024-03-19 09:05 | BH.SGPN.GN ---
Behaviors/Verbalizations/Mental Status: [] Eye contact is good. Motor activity is appropriate. Appearance is casual. Speech is Appropriate. Mood is depressed. Affect is congruent. Thoughts are linear and logical. No evidence of psychosis. Reviewed daily check in sheet and no reports of suicidal ideations or intent. Client Response/Progress/Benefit: [] Pt was an active participant in group discussions. Attentive. Daily symptom tracker notes 07/07 for depression. She was given goal by program therapist to write down her negative thoughts which she was unable to complete. ? I?m not ready?. She reports that she is working towards that goals and is currently ?acknowledging? her negative thoughts and ?not accepting them as fact?. Progress noted as she has noted increased awareness of cognitive distortions which has been beneficial. Benefited from group support, encouragement, and feedback. Will continue in IOP top prevent decompensation/re-admission to psych unit, increase healthy coping skills, and improve functioning to return to work. Narrative Note: []
--- NOTE | 2024-03-19 10:15 | BH.SGPN.GN ---
Behaviors/Verbalizations/Mental Status: [] Eye contact is good. Motor activity is appropriate. Appearance is casual. Speech is Appropriate. Mood is anxious, content. Affect is congruent. Thoughts are linear and logical. No evidence of psychosis. Client Response/Progress/Benefit: [] Pt engaged participant AEB listening to others, engaging in activity, and providing feedback at times. Attentive during psychoeducation and provided insight into obstacles that impede mental wellness. Pt shared with group current mental health reality and desired mental health reality, noting that she feels she is free falling without support or with supports trying to control her rather than help her. Desires a sense of direction and encouragement without over-involvement. Identified barriers to desired reality include: poor boundaries, fear of failure, and lack of confidence. Benefited from taking look at current mental health state and obstacles for progress. Pt to continue IOP tx to decrease anxiety, improve thought challenging skill application, and prevent decompensation. Narrative Note: []
--- NOTE | 2024-03-19 11:15 | BH.SGPN.GN ---
Behaviors/Verbalizations/Mental Status: []Eye contact is good. Motor activity is appropriate. Appearance is neat. Speech is Appropriate. Mood is anxious and euthymic. Affect is congruent. Thoughts are linear and logical. No evidence of psychosis. Client Response/Progress/Benefit: []Pt was an engaged participant in group discussion and activity. Worked with group to identify strategies to help overcome barriers and obstacles to desired reality. Group developed strategies for the common barriers. Identified personal barriers to desired reality and choose one obstacle to work. Pt stated pt wants to work on barrier of self-doubt by writing down her wins and making a ?to done list.? Pt seemed to benefit from increased repertoire of healthy coping skills/strategies to overcome common barriers to moving forward. Pt is to continue IOP to prevent decompensation, increase healthy coping skills, and improve daily functioning. Narrative Note: []
--- NOTE | 2024-03-23 09:05 | BH.SGPN.GN ---
Behaviors/Verbalizations/Mental Status: [] ?Pt alert and oriented, casually dressed and groomed. Eye contact good. Motor activity appropriate. Speech within normal limits. Affect congruent, mood anxious and depressed. Thoughts linear, logical, no signs of hallucinations or delusions. Reviewed pt?s symptom tracker, no risk for suicidal ideation, plan, or intent 03/23/24 Client Response/Progress/Benefit: []Pt receptive of session, engaged throughout and appearing to benefit from group support and encouragement. Identified current mental health wins as getting out of the house to ?do something with her children and challenging intrusive thoughts in doing so. Expressed use of self-compassion. Current stressor noted as intrusive thoughts that she will not improve. Did well to challenge these distortions reinforcing pt?s anxiety. Benefited from group supportive feedback, encouragement, and support. Recommended continued IOP tx to prevent decompensation, improve mood stability, and promote skill application Narrative Note: []
--- NOTE | 2024-03-23 10:15 | BH.SGPN.GN ---
Behaviors/Verbalizations/Mental Status: [] Eye contact is good. Motor activity is appropriate. Appearance is casual. Speech is Appropriate. Mood is anxious. Affect is congruent. Thoughts are linear and logical. No evidence of psychosis. Client Response/Progress/Benefit: [] Pt was an engaged participant AEB listening attentively to others, taking notes, and providing feedback in small group discussions. Attentive during psychoeducation AEB by note taking and providing some input. Pt worked along with peers in small groups to define inappropriate guilt and appropriate guilt. Interactive discussion on examples of both inappropriate and appropriate guilt. Worked well in small group with peers where they identified example of inappropriate vs appropriate guilt and the impact inappropriate guilt can have on MH. Benefited from increased awareness of guilt and the differences between appropriate and inappropriate guilt. Plan is to continue in IOP to prevent decompensation/re-admission to psych unit, increase healthy coping, and improve functioning to return to work. Narrative Note: []
--- NOTE | 2024-03-23 11:15 | BH.SGPN.GN ---
Behaviors/Verbalizations/Mental Status: []Pt alert and oriented, casually dressed and groomed. Eye contact good. Motor activity appropriate. Speech within normal limits. Affect congruent, mood anxious. Thoughts linear, logical, no signs of hallucinations or delusions. Client Response/Progress/Benefit: []Pt engaged participant AEB listening attentively to others and providing input throughout group. Pt worked within their small group to identify strategies to manage inappropriate guilt. Identified a personal example of inappropriate guilt as ?feeling bad for needing to take time off work because of my mental health?. Provided insight that this cues a feeling of ?fear of disappointing others? and challenges her need to be perfect. Pt wants to work on combatting inappropriate guilt by correcting the distortions and practicing sitting with the uncomfortable. Pt seemed to benefit from learning about strategies to manage appropriate and inappropriate guilt. Pt to continue IOP level of care to improve view of self, challenge negative thoughts, and prevent decompensation.
--- NOTE | 2024-03-24 14:46 | BH.MTP_ITS ---
Treatment Plan Review Demographics Date of Admission:: 03/02/24 Date of Treatment Plan Review:: 03/24/24 Admitting Diagnoses:: Major depressive disorder, recurrent, moderate; Panic disorder F 41.0; Generalized anxiety disorder Current Diagnoses:: Major depressive disorder, recurrent, moderate; Panic disorder F 41.0; Generalized anxiety disorder Patient Status Patient's Response to Treatment:: Pt has responded well to session AEB consistently attending IOP and engaging in both individual and group therapy sessions. Pt consistently completes homework provided from individual counseling. Pt contributes actively during group discussions, takes notes, appears to listen to others, and engages in group activities. Pt's overall DSM-5 scores have decreased by 29% since admission and she reports finding benefit from the coping skills so far. Status of Current Problems and Symptoms: Pt's symptoms have decreased, but still impacting her overall functioning. Pt still reports having moderate-severe symptoms of anxiety and depression more than half of the days in the week. Pt is gaining insight to her negative thought patterns that reinforce depression, fear of failure, and perfectionism and this has brought up a lot of emotions for pt. Pt is also working on setting boundaries and gaining more self-compassion. Progress Problem #1: Problem Name:: Panic, anxiety, and ruminations. Status of Goals:: Objective 1- in progress. Pt is working on reducing catastrophizing thoughts that lower distress tolerance and she is gaining confidence in her ability to regulate physical symptoms. Objective 2- complete with ongoing work encouraged. Pt?s symptoms have only decreased by 20% since admission and she is still reporting severe anxiety. Team Recommendations:: Treatment team encourages pt to continue working on distress tolerance skills, verbalizing boundaries, grounding skills, and practicing self-care to reduce stress. Problem #2: Problem Name:: Depression, guilt, and negative self-talk. Status of Goals:: Objective 1- in progress. Pt?s scores for depression have decreased since admission by 28%. Pt can benefit from reducing these sy mptoms more. Objective 2- in progress. Pt is working on self-compassion, dialectical thinking, and combatting perfectionistic expectations. Team Recommendations:: Team recommends continued goals and objectives to reinforce skills and reduce symptoms. Team recommends pt continue working on combating distortions, being more self-compassionate, and practicing dialectical thinking.
--- NOTE | 2024-03-25 09:00 | BH.SGPN.GN ---
Behaviors/Verbalizations/Mental Status: [] Pt alert and oriented, neatly dressed and groomed. Eye contact good. Motor activity appropriate. Speech within normal limits. Affect congruent, mood anxious. Thoughts linear, logical, no signs of hallucinations or delusions. Reviewed pt?s symptom tracker, no risk for suicidal ideation, plan, or intent 03/25/24 Client Response/Progress/Benefit: []Pt was an active participant in group discussions. Attentive. Able to identify mental health wins including meeting up with a friend for lunch and not canceling. Another win was feeling anxious last night, but removing herself from unnecessary stressors. Pt's stressor today is that she continues to struggle with setting boundaries and saying no as pt fears it will make people upset with her. Pt stated she is feeling nervous this morning. Pt receptive to feedback from peers which pt reported was helpful. Progress noted. Benefited from group support, encouragement, and feedback. Will continue in IOP to promote mood stability, reinforce healthy coping skills, and reduce negative thinking patterns. Narrative Note: []
--- NOTE | 2024-03-25 10:07 | BH.SGPN.GN ---
Behaviors/Verbalizations/Mental Status: [] Eye contact is good. Motor activity is appropriate. Appearance is casual. Speech is Appropriate. Mood is anxious. Affect is congruent. Thoughts are linear and logical. No evidence of psychosis. Client Response/Progress/Benefit: [] Pt receptive to session AEB contributing to group discussion, as well as listening attentively to others, and taking notes. Worked with group to brainstorm the positive and negative aspects of stress on physical and mental health as well as the impact of distress on performance, relationships, and mental health. Pt shared their top stressors to be: different parenting expectations from her , mental health, and daily responsibilities. Shared when feeling overwhelmed with stress pt tends to shut down, get irritable and bossy. Benefited from increased awareness of positive and negative stress as well as how stress impact individuals. Will continue in IOP to decrease anxious symptoms, increase follow through on boundary setting, and prevent decompensation. Narrative Note: []
--- NOTE | 2024-03-25 11:10 | BH.SGPN.GN ---
Behaviors/Verbalizations/Mental Status: [] Pt alert and oriented, casually dressed and groomed. Eye contact good. Motor activity appropriate. Speech within normal limits. Affect congruent, mood anxious and depressed. Thoughts linear, logical, no signs of hallucinations or delusions. Client Response/Progress/Benefit: [] Pt was an attentive participant in group discussions and actively engaged during experiential activity, doing well to regulate their emotions throughout the activity and work with peers. Attentive during psychoeducation on the 4 A's (Avoid, adapt, alter, accept) of coping with stress. Shared that they would benefit most from adapting her expectations (failure vs perfection) to live in the brody, accept help, and avoid adding additional stressors to her life. Was able to identify the connection between the experiential activity and utilization of stress management skills. Benefited from increased awareness of stress management strategies. Pt will continue IOP to prevent decompensation, increase healthy coping, and improve functioning to return to work. Narrative Note: []
--- NOTE | 2024-03-26 09:00 | BH.SGPN.GN ---
Behaviors/Yael ?Pt alert and oriented, casually dressed and groomed. Eye contact good. Motor activity appropriate. Speech within normal limits. Affect congruent, mood anxious and frustrated. Thoughts linear, logical, no signs of hallucinations or delusions. Reviewed pt?s symptom tracker, no risk for suicidal ideation, plan, or intent 03/26/24 Client Response/Progress/Benefit: [] Pt was an active participant in group discussions. Attentive. Able to identify mental health wins including giving my last 'No' in response to trick or treat invitations as pt struggles with people pleasing and overcommitting herself. Shared some guilt but mostly a sense of relief after doing so. Additional win noted as checking-in with her parents without compromising her boundaries of not discussing her mental health needs with them. Current stressor noted as her support's opinions on when she should return to work and them not taking into consideration pt's needs or wants. Plans to further advocate for herself in this regard. Benefited from group support, encouragement, and feedback. Will continue in IOP to prevent decompensation, improve daily functioning, and increase distress tolerance skills. Narrative Note: []
--- NOTE | 2024-03-26 11:13 | BH.SGPN.GN ---
Behaviors/Verbalizations/Mental Status: [] Client alert and oriented, neatly dressed and groomed. Eye contact good. Motor activity appropriate. Speech within normal limits. Affect congruent, mood euthymic. Thoughts linear, logical, no signs of hallucinations or delusions Client Response/Progress/Benefit: [] Client responded well to session AEB completing the resilience worksheet provided. Client actively participated in the discussion and worked cooperatively with group to identify strategies to enhance each of the components discussed. Client reports belief they already use resilience trait of ?self awareness? Client discussed that they could work on accepting change is a part of living. Client seemed to benefit from discussing strategies for improving personal resilience and identifying resilience traits client already possesses. Will continue IOP tx to increase overall functioning and prevent decompensation. Narrative Note: []
--- NOTE | 2024-03-26 14:48 | BH.MDN_ITS ---
Multi-Disciplinary Note Note 45-min Individual: Time Started:: 10:30 Date: 03/26/24 Purpose of session/treatment goals addressed:: To work on goal #1 of pt's tx plan. Another goal was to review core belief homework from last session. Eye Contact:: Good Motor Activity:: Appropriate Appearance:: Neat Speech:: Appropriate Mood:: Anxious and Depressed Affect:: Congruent Thoughts:: Linear, Logical and No evidence of hallucinations/delusions noted Staff Interventions:: thought challenging, CBT techniques, strengths perspective, goal setting and other (reviewed homework) Client Response:: Pt responded well to session, open to meeting with raf waddell. Pt reports she finished her homework from last session which was to begin gathering evidence for the new core beliefs pt wants to develop. Pt's current negative core beliefs are I'm not good enough and I'm lazy. Pt has been working on creating new core beliefs of what I do is enough and it's okay to be average. Pt began gathering evidence for this over the past week and pt shared over the weekend she had a moment of true enjoyment. Pt stated she allowed herself to not go above and behind which gave pt more time to hirsch and engage with her children and . Pt also got positive feedback from setting boundaries with her oldest daughter and advocating for herself with one of her best friends. Pt reflected that this made pt uncomfortable, but it was also very good for her and she understands the benefit of continuing to work on this. Pt shared she also texted two people from work, which pt stated she would not have done two weeks ago, and they had positive feedback and interactions with pt. Pt did shared she felt frustrated today because pt had told her that she wanted to return to work part-time and pt felt that her did not get excited like I wanted which triggered self-doubt. Pt stated she is able to challenge her automatic negative thoughts and remind herself that he operates differently than pt and he was likely processing information, he is not an excitable person. Pt receptive to continuing to gather evidence for her new core beliefs for homework. Risks/Concerns:: Pt denies any suicidal ideations, plan, or intent. Pt denies any thoughts of . Progress Toward Goals/Plan:: Pt is making progress towards her tx goals AEB pt's report of reducing anxiety and need for control. Pt is working on boundary setting and giving herself more compassion through words and actions. Pt continues to struggle with negative thinking patterns that reinforce depressi on and anxiety as well as physical symptoms of anxiety. Pt is considering returning to work part-time and pt wants to continue to explore this. Pt will continue IOP tx to prevent decompensation, improve self-compassion, and increase distress tolerance skills. Time Stopped:: 11:15
--- NOTE | 2024-03-29 09:05 | BH.SGPN.GN ---
Behaviors/Verbalizations/Mental Status: [] Eye contact is good. Motor activity is appropriate. Appearance is casual. Speech is Appropriate. Mood is anxious. Affect is constricted. Thoughts are linear and logical. No evidence of psychosis. Reviewed daily check in sheet and no reports of suicidal ideations. Client Response/Progress/Benefit: [] Pt participated at times during the group discussions. Attentive. Daily symptom tracker notes 08/04 for anxiety and depression. ? I was very social this weekend?. She shared the benefits as well as how this led to negative thoughts ? I can?t keep this up?. States ? it was very overwhelming?. Doubts about managing her anxiety if she returns to work ? apprehensive?. Peers helped to reframe as she did report waking up with anxiety and ?managing it on her own?. Progress noted. Benefited from group support, encouragement, and feedback. Will continue in IOP to maintain safety, prevent decompensation/stabilize mood, and improve functioning to return to work. Narrative Note: []
--- NOTE | 2024-03-29 11:15 | BH.SGPN.GN ---
Behaviors/Verbalizations/Mental Status: []Client alert and oriented, casually dressed and groomed. Eye contact good. Motor activity appropriate. Speech within normal limits. Affect congruent, mood euthymic and anxious. Thoughts linear, logical, no signs of hallucinations or delusions. Client Response/Progress/Benefit: [] Pt receptive of session, engaged throughout AEB Pt actively listening and contributing to discussion as well as taking notes.? Pt participated in the experiential activity and did well to communicate ideas with peers and manage emotions. Pt attentive as group processed how the emotions and perspective of the group impacted the activity. Group worked together to identify different coping skills to help manage pitfalls. Pt identified pitfall they struggle with as perfection/needing control. Pt plans to work on their pitfall by accepting that average is enough. Benefited from identifying personal pitfalls and strategies to overcome these pitfalls. Pt will continue IOP tx to prevent decompensation, increase self-compassion, and improve self-confidence. Narrative Note: []
--- NOTE | 2024-03-31 09:05 | BH.SGPN.GN ---
Behaviors/Verbalizations/Mental Status: [] Client alert and oriented, casual appearance. Eye contact good. Motor activity appropriate. Speech within normal limits. Affect congruent, mood irritable. Thoughts linear, logical, no signs of hallucinations or delusions. Reviewed client's symptom tracker, no risk for suicidal ideation, plan, or intent. Client Response/Progress/Benefit: [] Client responded well to session AEB listening to others and sharing thoughts/feelings. Client reported mental positive as choosing to open up and share during her first group today because she had the plan this morning of staying quiet during group do to have been a rough for last couple days. Client stated additional mental positive as asking for help after having 2 days that she really struggled with her mental health. Client reported current stressor is arguing with her about client wanting their daughter to get assistance at school but her has the perspective that their daughter is just lazy. Client reported her has a different viewpoint on mental health and school struggle. Client stated this has brought up increased negative thought patterns about herself and feeling worthless. Appeared to benefit from support from peers. Will continue IOP tx to improve view of self, challenge distorted thought patterns, and prevent decompensation.
--- NOTE | 2024-03-31 10:10 | BH.SGPN.GN ---
Behaviors/Verbalizations/Mental Status: [] Pt alert and oriented, casually dressed and groomed. Eye contact good. Motor activity appropriate. Speech within normal limits. Affect congruent, mood depressed and anxious. Thoughts linear, logical, no signs of hallucinations or delusions. Client Response/Progress/Benefit: []Pt an active participant in group discussions on defining conflict (internal/external) and possible benefits to conflict. Attentive during psychoeducation on conflict styles (avoidant, accommodating, competing, cooperative) and engaged during group discussion in which peers identified the benefits and consequences to each conflict style. Pt identified that she tends to be accommodating more than the other styles especially at work, with her ,and with her parents . Benefited from increased awareness of the impact of conflict styles in mental health. Will continue in IOP tx to prevent decompensation, stabilize mood, and improve functioning to return to work. Narrative Note: []
--- NOTE | 2024-03-31 11:10 | BH.SGPN.GN ---
Behaviors/Verbalizations/Mental Status: []Eye contact is good. Motor activity is appropriate. Appearance is casual. Speech is Appropriate. Mood is dysthymic. Affect is congruent. Thoughts are linear and logical. No evidence of psychosis. Client Response/Progress/Benefit: [] Pt was an active participant in group discussions and activity. Engaged with peers in activity and identifying healthy ways to approach each conflict scenario. Group discussed various conflict resolution skills that can be useful in addressing conflict outside of IOP. Benefited from practicing and learning conflict resolution skills during group activity. Able to identify areas pt wants to work on to improve how pt manages conflict both internally and externally. Expressed wanting to work on their communication skills with her partner to prevent conflict avoidance or resentment building. Will continue in IOP to maintain mood stability, improve confidence and ability to challenge unrealistic expectations, and prevent decompensation. Narrative Note: []
== END 2024-04-01 23:59 ==
LOC: BHIOP 08:00
PROVIDERS: Referring Provider Psychiatry & Neurology Psychiatry; Visit Provider Psychiatry & Neurology Psychiatry
DX: F33.1 Major depressive disorder, recurrent, moderate (principal); F41.0 Panic disorder [episodic paroxysmal anxiety]; F41.1 Generalized anxiety disorder; N95.1 Menopausal and female climacteric states; Z79.899 Other long term (current) drug therapy
CPT/HCPCS: S9480; 90832; 90834; 90837; 90853

== ENCOUNTER 2024-04-02 07:59 | Outpatient (RCR) | payer BC, SELFPAY ==
[2024-04-02 00:26] VITALS: BP 132/85; PULSE 61
--- NOTE | 2024-04-02 10:16 | BH.SGPN.GN ---
Behaviors/Verbalizations/Mental Status: [] Eye contact is good. Motor activity is appropriate. Appearance is casual. Speech is Appropriate. Mood is depressed. Affect is congruent. Thoughts are linear and logical. No evidence of psychosis. Client Response/Progress/Benefit: [] Pt participated at times during group discussion. Engaged in group activity and attentive during psychoeducation. Along with peers, pt was able to identify barriers to taking action in their life. Identified several symptoms and stressors that pt feels are holding them back from progress such as fear of failure, guilt, and low self-worth. Stated these things have kept pt from advocating for her needs and setting boundaries. Benefited from increased self-awareness of obstacles. Will continue IOP tx to prevent decompensation, further stabilize mood, and increase confidence. Narrative Note: []
--- NOTE | 2024-04-02 11:10 | BH.SGPN.GN ---
Behaviors/Verbalizations/Mental Status: []Pt alert and oriented, casually dressed and groomed. Eye contact good. Motor activity appropriate. Speech within normal limits. Affect congruent, mood anxious. Thoughts linear, logical, no signs of hallucinations or delusions. Client Response/Progress/Benefit: [] Pt responded well to session, taking notes and participating in worksheet discussion. Pt connected with the discussion on motion vs action steps, and this helped pt learn how to set goals differently. Pt set a goal improve self-worth. Pt identified motion steps including writing down positive self-talk, making list of what makes her feel good about herself, and writing down ways she diminishes her accomplishments. Pt stated what will help take action is using post it notes to identify what she accomplished each day and doing something that she enjoys. Appeared to benefit from identifying a small goal to benefit mental health. Pt is to continue IOP tx to challenge distortions, promote use of healthy coping skills, and prevent decompensation.
--- NOTE | 2024-04-02 11:42 | BH.MDN_ITS ---
Multi-Disciplinary Note Note 60-min Individual: Time Started:: 09:05 Date: 04/02/24 Purpose of session/treatment goals addressed:: To work on goal #2 of pt's tx plan. Eye Contact:: Good and Fair Motor Activity:: Appropriate Appearance:: Neat Speech:: Appropriate Mood:: Depressed Affect:: Constricted (tearful throughout session) Thoughts:: Other (ruminations) and No evidence of hallucinations/delusions noted Staff Interventions:: thought challenging, CBT techniques, mindfulness skills, strengths perspective and other (dialectical thinking) Client Response:: Pt responded well to session, open to meeting with therapist. Pt reports feeling depressed today and shared she has been ruminating and struggling with negative thinking. Pt and her have also had some conflict recently and pt shared in the past conflict did not bother her, but pt stated now when there is conflict she feels worthless. Pt shared a lot of her responses to conflict come from childhood and constantly feeling not good enough. Pt's upbringing has led to numerous core beliefs for pt that she is not good enough, has to be perfect, is too emotional, is too much, and not worthy of love if she is not productive. Pt has been learning about core beliefs and how t o develop new ones. Pt also receptive to practicing dialectical thinking to remind pt of her resilience and to validate her emotions. Pt appeared to benefit from processing her emotions without judgement and validating herself. Pt shared although her is supportive, he is not an emotionally expressive man, which leads to pt mind-reading or projecting her emotions. Discussed ways pt can clarify when she has anxious thoughts and how she can communicate her needs. Risks/Concerns:: Pt denies any suicidal ideations, plan, or intent. Pt denies any thoughts of . Progress Toward Goals/Plan:: Pt continues to be consistent with attendance, completing homework, and engaging in group activities. Pt reports her depression is worse now that her anxiety is improving and pt shared I feel like my depression caused my anxiety. Pt continues to struggle with negative thoughts of self and negative core beliefs. Pt receptive to working on dialectical thinking for homework and continuing to set boundaries. Pt will continue IOP tx to prevent decompensation, improve daily functioning, and increase self-compassion. Time Stopped:: 10:00
--- NOTE | 2024-04-05 09:00 | BH.SGPN.GN ---
Behaviors/Verbalizations/Mental Status: [] Eye contact is good. Motor activity is appropriate. Appearance is casual. Speech is Appropriate. Mood is anxious. Affect is constricted. Thoughts are linear and logical. No evidence of psychosis. Reviewed daily check in sheet and no reports of suicidal ideations or intent. Client Response/Progress/Benefit: [] Pt was an active participant in group discussion. Attentive. Daily symptom tracker notes /5 for depression and 2/5 for anxiety. According to pt she had to go to the ER for medical reasons and while there began to have a panic attack. She was proud of herself for how she responded to the anxiety which highlights her progress. She was able to be vulnerable and ask for help from ER staff. Found ER staff to be very supportive and responsive. I didn't feel like I was crazy or a burden. She is challenging her previous beliefs and finding evidence they are mistaken. Progress noted. Benefited from group support, encouragement, and feedback. Will continue in IOP to prevent decompensation/re-admission to psych unit, stabilize anxiety, and increase functioning to return to work. Narrative Note: []
--- NOTE | 2024-04-05 10:15 | BH.SGPN.GN ---
Behaviors/Verbalizations/Mental Status: []Client alert and oriented, casually dressed and groomed. Eye contact good. Motor activity appropriate. Speech within normal limits. Affect congruent, mood anxious. Thoughts linear, logical, no signs of hallucinations or delusions. Client Response/Progress/Benefit: [] Pt was an attentive and active participant, AEB taking notes and providing input in group discussion when prompted. Attentive during psychoeducation. Pt engaged during interactive discussion in which the group defined self-care and discussed its benefits. Group discussed barriers to engaging in self-care. Group members together came up with guilt, time, ?people pleasing?, not knowing what to do, and perception that its unproductive as barriers to engage in self-care. Pt participated in small groups where they worked to identify and challenged common self-care ?myths?. Benefited from increased awareness of self-care, its benefits, and the consequences of not utilizing self-care strategies. Will continue IOP tx to improve view of self, promote use of healthy coping skills, and prevent decompensation.
--- NOTE | 2024-04-05 11:15 | BH.SGPN.GN ---
Behaviors/Verbalizations/Mental Status: [] Client alert and oriented, casually dressed and groomed. Eye contact good. Motor activity appropriate. Speech within normal limits. Affect congruent, mood anxious and content. Thoughts linear, logical, no signs of hallucinations or delusions. Client Response/Progress/Benefit: []Client engaged in discussion reviewing different areas of self-care and completing self-assessment of current self care, as well as providing input throughout discussion. Did well to complete self-care self-assessment worksheet. Client identified current self-care practices and what self-care activities client wants to start using. Client selected emotional and spiritual self-care to begin practicing more consistently. Client plans to do this by challenging themselves to make a consistent effort to check-in and identify current emotions, as well as begin a daily devotional practice. Appeared to benefit from completing the self-care evaluation and gaining insights into current self-care practices, as well as identifying areas in which client would like to improve upon. Client will continue IOP tx to prevent decompensation, improve mood stability, and increase ability to challenge and replace thought distortions. Narrative Note: []
--- NOTE | 2024-04-06 09:00 | BH.SGPN.GN ---
Behaviors/Verbalizations/Mental Status: [] Pt alert and oriented, neatly dressed and groomed. Eye contact good. Motor activity appropriate. Speech within normal limits. Affect congruent, mood depressed. Thoughts linear, logical, no signs of hallucinations or delusions. Reviewed pt?s symptom tracker, no risk for suicidal ideation, plan, or intent 04/06/24 Client Response/Progress/Benefit: []Pt was an active participant in group discussions. Attentive. Able to identify mental health wins including using opposite action to not isolate and withdraw and reaching out to a support today. Pt's stressor today is that now that her anxiety has reduced, pt is noticing how severe her depression is. Pt stated she is feeling depressed this morning. Pt receptive to feedback from peers which pt reported was helpful. Progress noted despite increased depression, pt has been less anxious. Benefited from group support, encouragement, and feedback. Will continue in IOP to prevent decompensation, reduce negative thinking patterns, and increase self-compassion. Narrative Note: []
--- NOTE | 2024-04-06 10:15 | BH.SGPN.GN ---
Behaviors/Verbalizations/Mental Status: [] Eye contact is good. Motor activity is appropriate. Appearance is casual. Speech is Appropriate. Mood is dysthymic. Affect is congruent. Thoughts are linear and logical. No evidence of psychosis. Client Response/Progress/Benefit: [] Pt was an active participant during interactive group discussions. Along with peers contributed to interactive discussion on defining what a boundary is in mental health. Pt along with peers identified challenges to setting boundaries which included; people pleasing, fear of rejection, fear of loss, fear people won't respect the boundary, etc. Pt along with peers identified the benefits to setting boundaries such as reduces assumptions, can reduce stress, improve communication/relationships, and can keep us safe. Attentive during psychoeducation on types of boundaries (rigid, porous, flexible). Pt benefited from increased awareness and insight on the importance/benefit to setting health boundaries. Will continue in IOP to improve view of self, promote use of healthy coping skills, and prevent decompensation.
--- NOTE | 2024-04-06 11:20 | BH.SGPN.GN ---
Behaviors/Verbalizations/Mental Status: []Eye contact is good. Motor activity is appropriate. Appearance is casual. Speech is Appropriate. Mood is depressed and anxious. Affect is congruent. Thoughts are linear and logical. No evidence of psychosis. Client Response/Progress/Benefit: []Pt responded well to session AEB listening attentively to peers and taking notes throughout. Reports connecting with porous boundaries, especially with her emotional boundaries. Participated in group discussion brainstorming various strategies for improving healthy boundary setting. Pt reports wanting to improve her comfort levels with trusting her own opinion and saying no. Seemed to benefit from increased awareness of how different boundary styles can impact mental health. Will continue IOP tx to prevent decompensation, improve daily functioning, and increase mood stability. Narrative Note: []
--- NOTE | 2024-04-08 10:15 | BH.SGPN.GN ---
Behaviors/Verbalizations/Mental Status: []Client alert and oriented, neatly dressed and groomed. Eye contact good. Motor activity appropriate. Speech within normal limits. Affect congruent, mood depressed. Thoughts linear, logical, no signs of hallucinations or delusions. Client Response/Progress/Benefit: [] Pt responded well to session, contributing to discussion and engaged during the activity. Group identified the benefits of change which included: better mental health, increased confidence, and improved relationships. Worked with the group to identify barriers to change, which included: uncomfortable emotions such as anxiety, unrealistic expectations of self, fear of failure, negative self-talk, and change not happening fast enough. Pt participated along with group in activity where they identified and discussed the emotions related to change. Pt discussed how even difficult emotions can push you to make meaningful change. Benefited from increased awareness and understanding of emotions, benefits, and barriers related to change. Will continue IOP tx to promote mood stability, reduce negative thinking patterns, and improve self-confidence. Narrative Note: []
--- NOTE | 2024-04-08 11:15 | BH.SGPN.GN ---
Behaviors/Verbalizations/Mental Status: []Client alert and oriented, neatly dressed and groomed. Eye contact good. Motor activity appropriate. Speech within normal limits. Affect congruent, mood depressed. Thoughts linear, logical, no signs of hallucinations or delusions. Client Response/Progress/Benefit: [] Pt responded well to session, attentive throughout. Did well to actively listen and contributed when prompted as group worked to process activity. Pt worked with group to relate the strategies used to overcome barriers in the activity to managing change in own life. Pt identified a change they would like to make is ?work on being the real me and letting people see that.? Pt identified currently being in the contemplation stage for this change. Pt said being vulnerable with one thing she is struggling with to her can help pt get to the next stage. Appeared to benefit from identifying a change they want and how to progress. Pt will continue IOP tx to prevent decompensation, combat distorted thought patterns, and improve self-compassion. Narrative Note: []
--- NOTE | 2024-04-08 14:45 | BH.MDN ---
Multi-Disciplinary Note Note 60-min Individual: Time Started:: 08:45 Date: 04/08/24 Purpose of session/treatment goals addressed:: To work on identifying and combating distorted thought patterns and increasing self-compassion. Eye Contact:: Good Motor Activity:: Appropriate Appearance:: Neat Speech:: Appropriate Mood:: Depressed Affect:: Congruent (tearful) Thoughts:: Linear, Other (ruminations) and No evidence of hallucinations/delusions noted Staff Interventions:: thought challenging, CBT techniques, mindfulness skills, discharge planning, strengths perspective and goal setting Client Response:: Pt responded well to session, open to meeting with therapist. Pt shared she is feeling depressed today and she feels that maybe her anxiety was originally caused by pt's depression. Pt identified her depression triggers which included feeling worthless, arguments with people she loves, and not feeling good enough. Pt shared she feels worthless when she is not available for the kids, when she does not accomplish something, with work issues, but mostly when someone she loves is upset with her. Pt acknowledges that this could be real or perceived. Pt receptive to discussion of perceived threats and pt noted how this stems back to her childhood. Pt reported she had to get really good at reading the temperature of the room because of her mother's emotional instability. Pt continues to do this now, so pt personalizes other people's emotions often. Pt was tearful throughout session and gained insight to why these triggers are so impactful. Pt recognized that she is most anxious and depressed when there is a threat of abandonment or rejection. Pt shared this feeds her perfectionism and people pleasing to keep people happy with her. Pt noted that she believes only two people know the true me in her life, her best friend and her brother. Pt shared she feels that her does not even know the full her because she is worried that the true her is too much. Pt receptive to thought challenging techniques and utilizing self-compassion. Pt shared she has been gathering evidence for her new core belief (what I do is enough) still and this has been helping pt. Pt also receptive to exploring some inner child therapy and talking to herself the way she needed talked to when she was young. Pt also receptive to practicing self-validation. Risks/Concerns:: Pt denies any suicidal ideations, plan, or intent. Pt denies any thoughts of . Progress Toward Goals/Plan:: Pt is demonstrating progress in her report of reduced anxiety, however, pt is noting an increase in depressive symptoms. Pt reports increased crying spells, less energy, and increased negative thought patterns. Pt reports using healthy coping skills outside of IOP and she finds opposite action to be helpful. Pt is also allowing herself to set more boundaries and sit with the uncomfortable more. Pt will benefit from extending her IOP tx to 8 weeks instead of 6 as pt's depression symptoms are not resolving. Time Stopped:: 09:45
--- NOTE | 2024-04-13 09:05 | BH.SGPN.GN ---
Behaviors/Verbalizations/Mental Status: [] Pt alert and oriented, neatly dressed and groomed. Eye contact good. Motor activity appropriate. Speech within normal limits. Affect congruent-tearful at times and smiling at times. mood depressed. Thoughts linear, logical, no signs of hallucinations or delusions. Reviewed pt?s symptom tracker, no risk for suicidal ideation, plan, or intent 04/13/24 Client Response/Progress/Benefit: []Pt was an active participant in group discussions. Attentive. Able to identify mental health wins including using opposite action last week to prevent an all day self-pity and sticking with a schedule which helped pt get things accomplished. Pt's stressor today is that she and her had another argument and pt feels that she is not herself, so it makes it difficult for pt to advocate. Pt stated pt is feeling sad/depressed this morning. Pt receptive to feedback from peers which pt reported was helpful. Progress noted. Benefited from group support, encouragement, and feedback. Will continue in IOP to prevent decompensation, improve daily functioning, and increase distress tolerance skills. Narrative Note: []
--- NOTE | 2024-04-13 10:15 | BH.SGPN.GN ---
Behaviors/Verbalizations/Mental Status: []Pt alert and oriented, casually dressed and groomed. Eye contact good. Motor activity appropriate. Speech within normal limits. Affect congruent, mood anxious. Thoughts linear, logical, no signs of hallucinations or delusions. Client Response/Progress/Benefit: [] Pt was attentive during psychoeducation and participated in group activity. Group discussed what contributes to a person?s perspective and how perspective can positively or negatively impact mental health treatment. Pt reflected on their perspective today and how it is impacting them. Pt shared at start of IOP she had more of a pessimistic perspective towards treatment, but currently is closer to being optimistic that therapy can help. Pt stated she is nervous that she wont' be able to maintain the growth she has made so far. Pt appeared to benefit from increasing awareness of different perspectives and how they can affect mental health. Pt will continue IOP tx to improve view of self, increase consistent use of healthy coping skills, and prevent decompensation.
--- NOTE | 2024-04-13 11:18 | BH.SGPN.GN ---
Behaviors/Verbalizations/Mental Status: []Pt alert and oriented, casually dressed and groomed. Eye contact good. Motor activity appropriate. Speech within normal limits. Affect congruent, mood depressed. Thoughts linear, logical, no signs of hallucinations or delusions. Client Response/Progress/Benefit: []Pt was attentive and contributed to group discussion. Pt worked with group to identify strategies that can help with challenging negative perspective. Pt stated she can remind self that things are often brody as a way to challenge negative perspective. Pt completed strengths exploration worksheet, identifying personal strengths. Pt able to acknowledge how these strengths are helping pt and can continue to help pt in mental health journey. Pt identified wanting to work on leaning on strength of creativity and to practice skill of creative problem-solving as she learns healthier balance. Benefited from identifying personal strengths and strategies for enhancing use of identified strengths. Pt will continue IOP tx to continue practice healthy coping skills, build confidence in setting boundaries, and prevent decompensation. Narrative Note: []
--- NOTE | 2024-04-15 09:00 | BH.SGPN.GN ---
Behaviors/Verbalizations/Mental Status: [] Eye contact is good. Motor activity is appropriate. Appearance is casual. Speech is Appropriate. Mood is anxious. Affect is constricted. Thoughts are linear and logical. No evidence of psychosis. Reviewed daily check in sheet and no reports of suicidal ideations or intent. Client Response/Progress/Benefit: [] Pt was an active participant in group discussions. Attentive. Daily symptom tracker notes 07/07 for depression and 06/06 for anxiety. ? I?ve had two productive days in a row?. Reports being nervous about the future and is focused on the possibility of decompensation after productive days and how this could set her back. ?I don?t know how life is going to look?. Difficulty to be mindful??and live in the present as she is fearful of how disruptive her anxiety will be. Progress noted. Benefited from group support, encouragement, and feedback. Will continue in IOP to prevent decompensation, stabilize anxiety, and improve functioning to transition back to work. Narrative Note: []
--- NOTE | 2024-04-15 10:10 | BH.SGPN.GN ---
Behaviors/Verbalizations/Mental Status: [] Eye contact is good. Motor activity is appropriate. Appearance is casual. Speech is Appropriate. Mood is dysthymic. Affect is congruent. Thoughts are linear and logical. No evidence of psychosis. Client Response/Progress/Benefit: [] Pt did well to participate in activity and was engaged and attentive during psychoeducation and interactive discussion on coping skills, why people use unhealthy coping skills, how to replace unhealthy coping skills, and internal vs external coping skills. Attentive as peers came up with list of negative coping skills including not asking for help, avoidance, isolating, sleeping, shopping, substance use, and several others. Pt stated she has used isolation and overbooking herself with other's as distraction as an unhealthy coping skill. Recognizes this makes things worse. Stated she has been working on challenging herself to use opposite action and set boundaries. Group discussed the effects of how maladaptive coping skills can impact mental health in a negative way. Benefited from increased understanding of unhealthy coping skills and the need for developing healthy internal and external coping skills. Will continue in IOP to promote healthy coping skills, improve mood stability, and prevent decompensation. Narrative Note: []
--- NOTE | 2024-04-15 11:10 | BH.SGPN.GN ---
Behaviors/Verbalizations/Mental Status: []Pt alert and oriented, neatly dressed and groomed. Eye contact good. Motor activity appropriate. Speech within normal limits. Affect congruent, mood euthymic. Thoughts linear, logical, no signs of hallucinations or delusions. Client Response/Progress/Benefit: [] Pt responded well to session, taking notes and contributing when prompted. Group discussed the different categories of coping skills which included distraction, emotional release, grounding, self-love, and thought challenging. Pt participated in creating a coping skills ?menu? from the different categories of coping skills. Pt's coping skill menu included: 4x4x4 breathing, journaling, crafts, setting boundaries, and finding the [place]. Appeared to benefit from increasing repertoire of healthy coping skills. Will continue IOP tx to prevent decompensation, improve self-compassion, and combat distortions. ? Narrative Note: []
--- NOTE | 2024-04-16 09:00 | BH.SGPN.GN ---
Behaviors/Verbalizations/Mental Status: [] Client alert and oriented, casual appearance. Eye contact good. Motor activity appropriate. Speech within normal limits. Affect congruent, mood euthymic. Thoughts linear, logical, no signs of hallucinations or delusions. Reviewed client's symptom tracker, no risk for suicidal ideation, plan, or intent. Client Response/Progress/Benefit: [] Client responded well to session AEB listening to others and sharing thoughts/feelings. Client reported mental health positive as being able to use skills this morning when she recognized she was feeling anxious. Client stated this is progress for her because she typically doesn't notice that she's feeling anxious when she wakes up. Client reported additional mental health positive as feeling okay about not having any plans today. Client stated this typically would cause anxiety to have nothing planned. Client stated current stressor as still having to deal with feeling anxious when she wakes up. Client appeared to benefit from support from peers. Will continue IOP tx to promote use of healthy coping skills, challenge distorted thought patterns, and prevent decompensation.
--- NOTE | 2024-04-16 10:15 | BH.SGPN.GN ---
Behaviors/Verbalizations/Mental Status: [] Eye contact is good. Motor activity is appropriate. Appearance is casual. Speech is Appropriate. Mood is anxious. Affect is constricted. Thoughts are linear and logical. No evidence of psychosis. Client Response/Progress/Benefit: [] Pt was an active participant during group discussions and group activities. This portion of group was very psychoeducation heavy and pt was attentive during psychoeducation. Engaged during activity in which they identified which type of foods (i.e. carbs, sugar, salt, fast food, caffeine, etc) they seek out when sad, tired, angry, stressed, anxious, etc. Pt was able to identify the impact that certain foods have on their mental health through group example which was beneficial. Benefited from increased awareness of the connection between nutrition and mental health. Will continue in IOP to prevent decompensation/re-admission to psych unit, decrease anxiety, improve healthy coping, and improve functioning to return to work. Narrative Note: []
--- NOTE | 2024-04-16 15:35 | BH.MDN_ITS ---
Multi-Disciplinary Note Note 45-min Individual: Time Started:: 11:20 Date: 04/16/24 Purpose of session/treatment goals addressed:: To work on self-compassion techniques to challenge negative thinking and perfectionism. Eye Contact:: Good Motor Activity:: Appropriate Appearance:: Neat Speech:: Appropriate Mood:: Euthymic and Anxious Affect:: Congruent Thoughts:: Linear, Logical and No evidence of hallucinations/delusions noted Staff Interventions:: thought challenging, CBT techniques, strengths perspective, goal setting and taught coping skills (self-compassion ) Client Response:: Pt responded well to session, open to meeting with therapist. Pt reports she is feeling better in many ways, but she is still anxious about the future and having negative thoughts. Pt has been practicing dialectical thinking as well as self-compassion, so pt was open to practicing self-compassion in session today. Pt learned about the pillars of self- compassion, self-kindness, common human experience, and mindfully feeling. Pt also learned about the automatic responses we have to shortcomings; self- judgement, isolation, and over-identifying. Pt connected with these and discussed recent examples in her own life. Pt also reflected on why she is so self-critical and why it is challenging for pt to believe at times that she can get better. Pt receptive to working on self-compassion for homework by journaling about the three pillars. Pt also receptive to looking over the therapist list and making an appointment. Risks/Concerns:: Pt denies any suicidal ideations, plan, or intent. Pt denies any thoughts of . Progress Toward Goals/Plan:: Pt continues to make progress towards her tx goals AEB pt's report of using healthy coping skills outside of IOP and improv ements with functioning. Pt continues to have negative thinking patterns, unrealistic expectations, and fear of conflict, but she reports coping better with these stressors. Pt would like referrals for outpatient counseling and she was given a list of therapists. Pt will continue IOP tx for two more weeks to reinforce healthy coping skills, further reduce negative thoughts, and increase self-confidence. Time Stopped:: 12:00
--- NOTE | 2024-04-20 09:00 | BH.SGPN.GN ---
Behaviors/Verbalizations/Mental Status: [] Pt alert and oriented, neatly dressed and groomed. Eye contact good. Motor activity appropriate. Speech within normal limits. Affect congruent, mood euthymic. Thoughts linear, logical, no signs of hallucinations or delusions. Reviewed pt?s symptom tracker, no risk for suicidal ideation, plan, or intent 04/20/24 Client Response/Progress/Benefit: []Pt was an active participant in group discussions. Attentive. Able to identify mental health wins including working through a very bad panic attack this weekend, getting positive feedback from her about how she handled the panic, and feeling proud of herself for returning to the site of the panic attack. Pt's stressor today is that she is still trying to accept that progress means living alongside anxiety, not getting rid of it. Pt stated she is feeling accomplished this morning. Pt receptive to feedback from peers which pt reported was helpful. Progress noted. Benefited from group support, encouragement, and feedback. Will continue in IOP to promote mood stability, combat distortions, and reinforce healthy coping skills. Narrative Note: []
--- NOTE | 2024-04-20 10:15 | BH.SGPN.GN ---
Behaviors/Verbalizations/Mental Status: [] Eye contact is fair. Motor activity is appropriate. Appearance is casual. Speech is Appropriate. Mood is anxious. Affect is constricted. Thoughts are linear and logical. No evidence of psychosis Client Response/Progress/Benefit: [] Pt engaged in session AEB listening attentively to others and providing input throughout. Pt engaged in activity, able to connect how it can be uncomfortable and difficult to accept when things are out of one?s own control. Worked with peer group to identify things in life which are hard to accept which included; loss, medical diagnoses, change, lack of control, failure, and needing help. Seemed to benefit from increased awareness of the meaning as well as the importance of acceptance. Will continue in IOP to prevent decompensation, stabilize anxiety, and improve functioning to return to work. Narrative Note: []
--- NOTE | 2024-04-20 11:10 | BH.SGPN.GN ---
Behaviors/Verbalizations/Mental Status: []Pt alert and oriented, casually dressed and groomed. Eye contact fair. Motor activity appropriate. Speech within normal limits. Affect congruent, mood anxious. Thoughts linear, logical, no signs of hallucinations or delusions. Client Response/Progress/Benefit: [] Pt responded well to session AEB taking notes and contributing to discussion throughout. Pt engaged as group continued discussion on acceptance and the mental health benefits of practicing acceptance. Pt and peers identified what makes acceptance challenging and pt completed a self-reflection exercise on what is hard to accept in pt's life. Pt identified things that are hard to accept for her include: anxiety, child's learning issues, and can't mind over matter everything. Client stated by not accepting certain situations it leads her to ignore warning signs and not ask for help. Group identified strategies to increase acceptance. Pt appeared to benefit from gaining insight and learning strategies to increase acceptance. Pt will continue IOP tx to improve view of self, increase self-care, and prevent decompensation.
--- NOTE | 2024-04-21 10:10 | BH.SGPN.GN ---
Behaviors/Verbalizations/Mental Status: []Pt alert and oriented, neatly dressed and groomed. Eye contact good. Motor activity appropriate. Speech within normal limits. Affect congruent, mood euthymic. Thoughts linear, logical, no signs of hallucinations or delusions. Client Response/Progress/Benefit: [] Pt was an active participant in group discussion. Attentive during psychoeducation on the CBT [place] (Thoughts, Behaviors, Emotions). Engaged in group discussion on how thoughts and behaviors can contribute to maintaining adverse feelings, such as depression, anxiety, and irritability. Completed worksheet in which pt identified a thought that is keeping them stuck or is in obstacle to increased mental wellness. The thoughts that pt identified were ?I?m lazy, I?ll never get better, and if I don?t do something I?m worthless.? Shared this maintains depression and anxiety cycles. Pt benefited from increased awareness of the basis of CBT therapy as well as specific thoughts that are impacting pt's progress. Will continue in IOP to promote mood stability and reinforce healthy coping skills. Narrative Note: []
--- NOTE | 2024-04-21 10:26 | BH.MDN_ITS ---
Multi-Disciplinary Note Note 30-min Individual: Time Started:: 09:00 Date: 04/21/24 Purpose of session/treatment goals addressed:: To discuss aftercare, progress, and strategies for success. Eye Contact:: Good Motor Activity:: Appropriate Appearance:: Neat Speech:: Appropriate Mood:: Euthymic Affect:: Full Thoughts:: Linear, Logical and No evidence of hallucinations/delusions noted Staff Interventions:: discharge planning, strengths perspective and other (maintenance plan given and discussed strategies for success. ) Client Response:: Pt responded well to session, open to meeting with therapist. Pt reports she has been feeling actually good and she is happy that she got to continue with IOP tx because two weeks ago I was not ready to discharge. Pt shared she recently had a severe panic attack and she realized how much progress she has made because pt was able to work through it. Pt stated she used positive self-talk, grounding skills, and opposite action. Pt shared several weeks ago a panic attack like that would have led pt to go to the ER again. Pt reported I think if I didn't come to IOP I would just be going to the ER every month or so. Pt reported she is getting better with acceptance and using dialectical thinking to be okay with being average and being enough. Pt shared these skills have also helped pt not catastrophize, set boundaries, and be vulnerable with supports. Pt stated she is somewhat anxious about going back to work, but pt has an idea of how she can advocate for herself to have a better work-life balance. Pt receptive to completing a maintenance plan for her depression and anxiety and we will review it next week. Risks/Concerns:: No SI or thoughts of reported. Progress Toward Goals/Plan:: Pt continues to make progress towards her tx goals AEB pt's self-report of being more stable, confident, and getting back to her normal self. Pt reports that she started feeling better more consistently for the past week or so now and she is feeling confident to return to work. Pt is anxious, but she also reports feeling capable of managing anxiety and depression. Pt got an appointment with Bebe Delgadillo for medication management and Denise Killian for individual therapy through [facility]. Pt will discharge from IOP tx next Friday and can benefit from one more week to reinforce healthy coping skills and further improve mood stability. Time Stopped:: 09:25
--- NOTE | 2024-04-21 11:15 | BH.SGPN.GN ---
Behaviors/Verbalizations/Mental Status: []Pt alert and oriented, casually dressed and groomed. Eye contact good. Motor activity appropriate. Speech within normal limits. Affect congruent, mood content. Thoughts linear, logical, no signs of hallucinations or delusions. Client Response/Progress/Benefit: [] Pt responded well to session, contributing to discussion and attentive throughout discussion. Pt identified a negative thought that has kept them stuck. Pt's thought was If I don?t say yes to everyone or have something to offer, I?m worthless.? Pt reported when they think this way, pt overcompensates and takes on more than she can manage. Pt worked to reframe the thought by finding more rational, realistic ways to look at the thoughts and then processed them within group setting. Pt reframed the thought to ?People like me for who I am, not what I do.? Pt appeared to benefit from practicing challenging negative thinking with peers and gaining coping skills. Pt will continue IOP tx to promote mood stability, increase thought challenging, and further increase self-confidence. Narrative Note: []
--- NOTE | 2024-04-21 11:55 | PCM.BH.PN ---
Progress Note Progress Note: History of Present Illness/Interim History: [] The patient is a 43-year-old female with a history of depression, anxiety and panic attacks who is seen in follow-up at the [facility] behavioral health IOP. I last saw the patient about 4 weeks ago and at that time her Effexor XR was increased in dose to 150 mg daily. The patient tolerated this well and has been compliant. According to the staff the patient has been consistent in her attendance and engaged in the program. The patient states that she feels much better. She is still a little depressed at times but feels she has made great progress. Her anxiety has improved and she has only had 1 panic attack in the past month. She has a better understanding of how her recent onset of menopause has exacerbated her symptoms. She went back on estradiol patches 5 days ago after meeting with her [facility] doctor. She denies passive thoughts of , thoughts of self-harm, suicidal ideation, plan for suicide, homicidal ideation, hallucinations or delusions. Current Psychiatric Medications: [] Effexor XR 150 mg p.o. daily (on this dose for 1 month); Xanax 0.5 mg p.o. as needed for panic attack (less than once every 2 weeks). Mental Status Examination: [] The patient is a tall, slender 43-year-old female who appears normal or younger than stated age and is casually dressed and groomed with good hygiene. She has no psychomotor agitation or retardation and is ambulatory with a normal gait. She is cooperative and pleasant during the interview. Eye contact is good and speech is normal rate and rhythm and fluent with no pressure. Mood is euthymic. Affect is full and normal. Thought process is goal-directed and organized. Thought content: The patient is a little nervous about returning to work in about 10 days but feels that this is normal. There is no evidence of passive thoughts of , suicidal ideation, homicidal ideation, plan for suicide, hallucinations or delusions. Reality testing is intact. Intelligence is above average. Judgment is intact. Insight is good. Impulsivity is low. Diagnoses: [] 1. Major depressive disorder, recurrent, mild (F33.0) 2. Panic disorder 3. Generalized anxiety disorder 4. Recent onset of menopause 5. Work issues Plan: [] The patient will continue the IOP in behavioral health at [facility] as she has greatly improved during the program. She felt safe during the interview and if it anytime she does not feel safe she agrees to let us know or go to the emergency room. No medication changes were made today and refills were given on the Effexor XR. She will can continue to follow-up with her outpatient providers and I will see the patient in follow-up but she may discharge next week if she continues to do well.
--- NOTE | 2024-04-23 09:00 | BH.SGPN.GN ---
Behaviors/Verbalizations/Mental Status: [] Eye contact is good. Motor activity is appropriate. Appearance is casual. Speech is Appropriate. Mood is depressed. Affect is congruent. Thoughts are linear and logical. No evidence of psychosis. Reviewed daily check in sheet and no reports of suicidal ideations or intent. Client Response/Progress/Benefit: [] Pt was an active participant in group discussions. Attentive. Daily symptom tracker notes 3/5 for depression and 2/5 for anxiety. Overall mood and functioning are ?better?. ?I just don?t feel well today?. ?down and depressed?. Did not identify any specific trigger. According to pt she is attempting to utilize skills and was able to work through mental health struggles yesterday. Regression reported. Benefited from group support, encouragement, and feedback. Will continue in IOP to prevent decompensation/re-admission to psych, stabilize anxiety, and improve functioning. Narrative Note: []
--- NOTE | 2024-04-23 10:15 | BH.SGPN.GN ---
Behaviors/Verbalizations/Mental Status: []Pt alert and oriented, casually dressed and groomed. Eye contact good. Motor activity appropriate. Speech within normal limits. Affect congruent, mood content, anxious. Thoughts linear, logical, no signs of hallucinations or delusions. Client Response/Progress/Benefit: [] Pt took notes and contributed to group discussions. Attentive during psychoeducation on growth mindset. Participated during the activity. Interactive group discussion on growth mindset in which group verbalized their current fixed mindsets and how they affect their mental health. Pt shared common fixed mindset thoughts they have. These thoughts lead to people pleasing, not maintaining boundaries, and self-criticism. Pt stated they have personally struggled with fixed thoughts causing them to people please out of guilt. Pt benefited from increased awareness of growth mindset and fixed thoughts and how fixed thoughts impact their mental health. Will continue IOP tx to prevent decompensation, improve daily functioning, and promote mood stability. Narrative Note: []
--- NOTE | 2024-04-23 11:10 | BH.SGPN.GN ---
Behaviors/Verbalizations/Mental Status: []Pt alert and oriented, neatly dressed and groomed. Eye contact good. Motor activity appropriate. Speech within normal limits. Affect congruent-tearful, mood depressed. Thoughts linear, logical, no signs of hallucinations or delusions. Client Response/Progress/Benefit: []Pt was an active participant during activity and discussion. Pt did well to remain attentive and participate as group worked on identifying characteristics and benefits of adopting a growth mindset. Worked with fellow participants in reframing the example fixed thoughts into growth mindset thoughts. Pt worked on changing own fixed thought and reframed the thought to ?someday I will love myself enough to show my true personality.? Pt also wants to work on using dialectical thinking. Pt appeared to benefit from challenging own thoughts and engaging in the activity. Pt will continue IOP tx to reduce negative thinking patterns, reinforce healthy coping skills, and improve self-compassion. Narrative Note: []
--- NOTE | 2024-04-26 09:00 | BH.SGPN.GN ---
Behaviors/Verbalizations/Mental Status: [] Eye contact is good. Motor activity is appropriate. Appearance is casual. Speech is Appropriate. Mood is depressed. Affect is full. Thoughts are linear and logical. No evidence of psychosis. Reviewed daily check in sheet and pt denies suicidal ideations and intent. Client Response/Progress/Benefit: [] Pt participated throughout. Attentive and providing supportive feedback to peers. Daily symptom tracker notes 08/04 for anxiety and depression. Reports mental health wins as using positive self-talk and grounding to make it through her very busy weekend. Additional win noted as making plans to work on a [employer] project this afternoon as a form of personal self-care. Current stressor reported as ongoing sx of depression; however, did well to identify that her sx are reducing g and she is able to recognize daily moments of addy. Benefited from group support, encouragement, and feedback. Will continue in IOP to prevent decompensation, stabilize mood, and further improve functioning. Narrative Note: []
--- NOTE | 2024-04-26 10:15 | BH.SGPN.GN ---
Behaviors/Verbalizations/Mental Status: []Patient was alert and oriented, casually dressed and groomed. Eye contact good. motor activity congruent. speech within normal limits. Affect congruent, mood dysthymic. Thoughts linear, logical, no signs of hallucinations or delusion. Client Response/Progress/Benefit: []Pt participated in the group discussions AEB nodding and taking notes. Attentive during psychoeducation Goal Setting. Participated during the discussion on common barriers. Pt stated a personal barrier to accomplishing goals is believing my goals are selfish. Group also identified benefits of goals as sense of purpose, improved self-confidence, more motivation for other goals, and improved mental health. Pt identified personal benefits to goal setting. Benefited from increased awareness of mental health benefits of goals as well as psychoeducation on SMART goal criteria. Will continue in IOP to improve view of self, challenge distorted thoughts, and prevent decompensation.
--- NOTE | 2024-04-26 11:10 | BH.SGPN.GN ---
Behaviors/Verbalizations/Mental Status: []Pt alert and oriented, neatly dressed and groomed. Eye contact good. Motor activity appropriate. Speech within normal limits. Affect congruent, mood anxious and engaged. Thoughts linear, logical, no signs of hallucinations or delusions. Client Response/Progress/Benefit: [] Pt was engaged during discussion and willing to complete the worksheet challenging them to develop a personal SMART goal. Pt chose the goal of sharing one opinion that she is afraid will differ from others once a week for a month. Pt stated fear of conflict, negative self-talk, and anxiety as barriers. Identified solutions of daily affirmations, reminding self of the value she has, and opposite action. Benefited from this group by developing a short-term SMART goal related to mental health. Will continue IOP tx to promote use of healthy coping skills, reinforce healthy coping skills, and reinforce self-compassion. Narrative Note: []
--- NOTE | 2024-04-27 09:05 | BH.SGPN.GN ---
Behaviors/Verbalizations/Mental Status: [] Eye contact is good. Motor activity is appropriate. Tearful at times. Appearance is casual. Speech is Appropriate. Mood is depressed. Affect is congruent. Thoughts are linear and logical. No evidence of psychosis. Reviewed daily check in sheet and no reports of suicidal ideations or intent. Client Response/Progress/Benefit: [] Pt participated at times during the group discussions. Attentive. Daily symptom tracker notes 08/04 for depression and anxiety. ?I?m tremendously anxious today?. Reports intrusive thoughts and feeling hopeless. She described survival ambivalence ?Do I have to live like this forever?? ?referring to her anxiety and depression. She was clear to deny any suicidal ideations ? I don?t want to hurt myself?. According to pt she is utilizing her skills such as oppositive-action and dialectical thinking which has some benefit. She did not elaborate on triggers; however, the group was supportive and provided general feedback which was beneficial. Will continue in IOP to prevent decompensation, increase healthy coping, and improve functioning to return to work. Narrative Note: []
--- NOTE | 2024-04-27 10:15 | BH.SGPN.GN ---
Behaviors/Verbalizations/Mental Status: [] Eye contact is fair. Motor activity is appropriate. Appearance is casual. Speech is Appropriate. Mood is dysthymic and anxious. Affect is congruent. Thoughts are linear and logical. No evidence of psychosis. Client Response/Progress/Benefit: [] Pt engaged participant AEB listening to others, engaging in activity, and providing feedback at times. Attentive during psychoeducation and provided insight into obstacles that impede mental wellness. Pt chose to not share with group current mental health reality and desired mental health reality. Did appear attentive to others that shared. Identified barriers to desired reality include: feeling worthless, fear of not getting better, and low motivation/depressed state. Benefited from taking look at current mental health state and obstacles for progress. Pt to continue IOP tx to improve confidence, challenge negative self-talk, and prevent decompensation.
--- NOTE | 2024-04-27 11:20 | BH.SGPN.GN ---
Behaviors/Verbalizations/Mental Status: []Eye contact is good. Motor activity is appropriate. Appearance is casual. Speech is Appropriate. Mood is anxious and dysthymic. Affect is congruent. Thoughts are linear and logical. No evidence of psychosis. Client Response/Progress/Benefit: []Pt was an engaged participant in group discussion and activity. Worked with group to identify strategies to help overcome barriers and obstacles to desired reality. Group developed strategies for the common barriers. Identified personal barriers to desired reality and choose one obstacle to work. Pt stated pt wants to work on barrier of feeling worthless by using more affirmations. Pt seemed to benefit from increased repertoire of healthy coping skills/strategies to overcome common barriers to moving forward. Pt is to continue IOP to prevent decompensation, increase healthy coping skills, and improve daily functioning. Narrative Note: []
--- NOTE | 2024-04-28 08:55 | BH.MDN_ITS ---
Multi-Disciplinary Note Note 30-min Individual: Time Started:: 12:00 Date: 04/28/24 Purpose of session/treatment goals addressed:: To address current stressors and discuss strategies to help cope with these stressors. Another goal was to discuss discharge and aftercare. Eye Contact:: Good Motor Activity:: Appropriate Appearance:: Neat Speech:: Appropriate Mood:: Euthymic and Anxious Affect:: Full Thoughts:: Linear, Logical and No evidence of hallucinations/delusions noted Staff Interventions:: discharge planning, strengths perspective and reviewed DSM-5 Client Response:: Pt responded well to session, open to meeting with therapist. Pt's last day of IOP tx and she reports feeling bittersweet about leaving. Pt shared she feels both ready and not ready. Pt expressed her biggest gains made in IOP as becoming more comfortable with being average, thinking in the [place], setting boundaries, and reducing her self-judgment. Pt wants to continue working on maintaining boundaries, especially as she goes back to work. Pt shared that she is most anxious about how returning to work will go because she knows how quickly she can get back into old habits of over-working herself. Discussed strategies pt came up with while working on her maintenance plan which included; taking medications daily, having a consistent sleep schedule (10pm at the latest), eating three meals a day, and continuing to delegate tasks at home. Pt shared she is giving herself until June to see if returning to work full-time is a good fit for her. 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 Pt reviewed other coping skills and strategies to help keep her well and these included going on dates with her , being honest with co- workers, and keeping up with therapy appointments. Pt will discharge today. Risks/Concerns:: Pt denies any suicidal ideations, plan, or intent. Pt denies any thoughts of . Progress Toward Goals/Plan:: Pt has accomplished her tx goals AEB her reduction in over symptoms, depression, and anxiety (see discharge summary). Pt will discharge from IOP tx today and continue with outpatient counseling, IOP aftercare group, and outpatient psychiatry. Time Stopped:: 12:30
--- NOTE | 2024-04-28 08:55 | BH.AFTERPLAN ---
Aftercare Plan Demographics Treatment End Date:: 04/28/24 Psychiatrist:: Macarena Lee Psychiatrist Office #:: [phone] [facility]/IOP Therapist:: Isabella Chavira Therapist Phone #:: [phone] Medications Home Medications alprazolam 0.5 mg tablet (Xanax) 0.5 mg PO BID PRN panic attacks 30 days #10 tabs 03/03/24 estradiol 0.025 mg/24 hr weekly transdermal patch (Climara) 1 patch transdermal QWEEK 03/03/24 venlafaxine 150 mg capsule,extended release 24 hr (Effexor XR) 150 mg PO DAILY 30 days #30 caps 04/21/24 Plan Details Progress/Aftercare Plan Details:: Anh has responded well to treatment as evidenced by Anh consistently attending IOP sessions and her reduction of DSM-5 scores since admission. Anh was always attentive and receptive to learning during group and individual sessions. Anh actively applied coping skills outside of IOP and reports overall her mood is improved and she is functioning better than she was several months ago. Anh?s overall symptom reduction is 61% since admission with anger decreasing by 50%, depression decreasing by 43%, SI decreasing by 100%, and anxiety decreasing by 50%. Anh has increased self-compassion and faced many hard things. Most importantly, Anh has become more vulnerable, flexible, and confident in her abilities. Anh will follow up with Bebe Delgadillo and Denise Killian at [facility] for medication management and therapy. Strategies for Success:: 1. Opposite action! Continue to break that cycle of anxiety, guilt, and depression by not letting emotions be the only drivers of your bus. 2. Remember that thoughts are thoughts NOT facts! You have power in if you give thoughts the time of day or not. 3. self-care! You deserve to take time for you and you also deserve to face the not so fun self-care like delegating tasks and advocating for yourself 4. Self-compassion! You are human and you will make a mistake?BUT that doesn?t mean you are a failure or not good enough. Remember there are no bad parts! 5. Continue to practice acceptance and remember that it is okay to be AVERAGE! 6. Practice positive self-talk and keep track of your wins. 7. Remember progress isn?t linear! You may have a setback or bump in the road, but that doesn?t mean you?ve lost all progress. 8. self-reflection and self-awareness. 9. Be understanding with yourself and try to see the whole picture, not just the snapshot. 10. Live in the brody!! Appointments Appointments/Referrals to Other Services:: 1. Bebe Delgadillo for medication management. 2. Denise Killian for individual therapy, appointment on 05/04/24. 3. IOP aftercare starting 05/06/24 from 2:00-3:30pm
--- NOTE | 2024-04-28 09:00 | BH.SGPN.GN ---
Behaviors/Verbalizations/Mental Status: []Client alert and oriented, casual appearance. Eye contact good. Motor activity appropriate. Speech within normal limits. Affect congruent, mood euthymic and anxious. Thoughts linear, logical, no signs of hallucinations or delusions. Reviewed client's symptom tracker, no risk for suicidal ideation, plan, or intent. Client Response/Progress/Benefit: []Client responded well to session AEB listening to others and sharing thoughts/feelings. Client shared she has been through all the stages of grief about discharging from IOP today and feels she is in the acceptance stage. Client reported mental health positive as graduating from IOP today. Client stated she can see progress within herself, but recognizes she still has a long way to go. Client stated current stressor as still feeling depressed, but is using opposite action to do things instead of staying in bed/laying around. Appeared to benefit from support from peers. Pt has shown treatment progress since starting IOP and will discharge today.
--- NOTE | 2024-04-28 10:15 | BH.SGPN.GN ---
Behaviors/Verbalizations/Mental Status: [] Eye contact is good. Motor activity is appropriate. Appearance is casual. Speech is Appropriate. Mood is euthymic. Affect is full. Thoughts are linear and logical. No evidence of psychosis. Client Response/Progress/Benefit: [] Pt was an active participant in group discussions. Attentive during psychoeducation on the 4 communication styles (Passive, Passive-Aggressive, Aggressive, and Assertive) and the obstacles to effective communication. ?Participated during interactive discussions on the benefits and disadvantages to each communication style. Along with peers was able to identify struggles and illusions to effective communication. Pt believes that they are most often passive which leads to getting walked all over, feeling unheard, and feeling ignored. Benefited from increased understanding of communication styles and how these can impact effective communication. Scheduled to discharge successfully from [facility] today. Narrative Note: []
--- NOTE | 2024-04-28 11:15 | BH.SGPN.GN ---
Behaviors/Verbalizations/Mental Status: []Pt alert and oriented, neatly dressed. Eye contact good. Motor activity appropriate. Speech within normal limits. Affect congruent, mood euthymic and anxious. Thoughts linear, logical, no signs of hallucinations or delusions. Client Response/Progress/Benefit: [] Pt responded well to session AEB Pt listening attentively to others and providing input during group discussion on the pay offs and costs of the different communication styles. Pt able to connect how current communication style impacts mental health. Connected with peers? comments about importance of using assertive communication. Pt did well with practicing being assertive in the group activity and worked with group to identify potential skills for improving communication skills. Pt stated she will practice being assertive by ?reminding herself that ?someone can be upset with me and not hate me.? Pt seemed to benefit from increasing awareness of healthy strategies to improve communication. Will discharge from IOP tx as pt has accomplished her tx goals and no longer meets criteria for IOP level of care. Narrative Note: []
--- NOTE | 2024-04-28 12:33 | BH.DS_ITS ---
Discharge Summary Demographics Date of Admission:: 03/02/24 Discharge Date: 04/28/24 Presenting Problems at Admission:: Pt is a 43-year-old female with a history of MDD and MANUEL who was referred to [facility] tx following a psych admission on 02/16/24 to [facility]. Pt voluntarily admitted herself due to a severe panic attack which led to fear that pt would harm herself. Pt has no history of SI or suicide attempts. Pt reports her anxiety and depression symptoms have been worsening over the past several months and are no longer managed with just medication alone. Pt currently endorses a depressed mood, increased appetite, isolative behaviors, low energy, and excessive guilt. Pt also endorses severe anxiety with panic attacks, racing thoughts, irritability, and fear of going crazy. Pt is currently taking time off work using FMLA and pt's symptoms are impacting her overall functioning. Discharge Diagnoses:: Major depressive disorder, recurrent, moderate; Panic disorder F 41.0; Generalized anxiety disorder Reason for Discharge:: Pt has accomplished her tx goals AEB her reduction of DMS-5 symptoms, her self-report of improved functioning and mood, and improved outlook. Pt no longer meets criteria for [facility] level of care and will discharge to outpatient counseling. Treatment Progress During Treatment & Response: Pt has responded well to treatment as evidenced by Pt consistently attending IOP sessions and her reduction of DSM-5 scores since admission. Pt was always attentive and receptive to learning during group and individual sessions. Pt actively applied coping skills outside of IOP and reports overall her mood is improved and she is functioning better than she was several months ago. Pt?s overall symptom reduction is 61% since admission with anger decreasing by 50%, depression decreasing by 43%, SI decreasing by 100%, and anxiety decreasing by 50%. Pt has increased self-compassion and faced many hard things. Most importantly, Pt has become more vulnerable, flexible, and confident in her abilities. Pt will follow up with Bebe Delgadillo and Denise Killian at [facility] for medication management and therapy. Issues Still to be Addressed:: Self-confidence, self-compassion, guilt, and self-worth. Pt can also benefit from continuing to practice self-care and boundary setting. Discharge Recommendations/Instructions:: Pt is recommended to continue with outpatient counseling with Denise Killian at [facility]. Pt's first appointment is on 05/04/24. Pt also chose to change her psychiatric provider as pt wants all her providers under one roof. Pt will see Bebe Delgadillo through [facility] in May. Pt will begin IOP aftercare group on 05/06/24. Discharge Handout
== END 2024-04-28 12:37 | disposition home or self-care (01) ==
LOC: BHIOP 07:59
PROVIDERS: Referring Provider Psychiatry & Neurology Psychiatry; Visit Provider Psychiatry & Neurology Psychiatry
DX: F33.1 Major depressive disorder, recurrent, moderate (principal); F41.0 Panic disorder [episodic paroxysmal anxiety]; F41.1 Generalized anxiety disorder; Z79.899 Other long term (current) drug therapy
CPT/HCPCS: S9480; 90832; 90834; 90837; 90853

== ENCOUNTER 2024-04-02 12:20 | Emergency (ER) | payer BC, SELFPAY ==
[2024-04-02 12:21] VITALS: BP 126/85; PULSE 67; RESP 18; TEMP 36.6; O2SAT 100; BMI 23.8
--- NOTE | 2024-04-02 13:28 | CT_ITS ---
STUDY: CT ABDOMEN AND PELVIS WITHOUT CONTRAST REASON FOR EXAM: Female, 43 years old. Left flank pain and left lower quadrant pain. History of kidney stones. RADIATION DOSAGE (If Supplied By Facility): CTDIvol = ( 7.71 ) mGy, DLP = ( 392.88 ) mGycm TECHNIQUE: Transaxial images were obtained from the dome of the diaphragm to the symphysis pubis without oral contrast, and without intravenous contrast. Sagittal and coronal images were reconstructed. Individualized dose optimization techniques were used for this CT. COMPARISON: None. FINDINGS: Minimal linear atelectasis and/or scarring at the left lung base. The visualized portions of the heart are within normal limits. Normal liver. Normal gallbladder and extrahepatic biliary system. Normal spleen. Normal pancreas. Surgical clips are seen in the right upper quadrant anterior to the distal portion of the right kidney and the liver. Normal right kidney. Normal left kidney. No definite ureteral obstruction is seen. Normal visualized stomach. Normal small intestine. Normal colon. The appendix is visualized and appears normal. Normal abdominal aorta. Normal inferior vena cava. Normal retroperitoneum. Normal urinary bladder. There is a 4.4 cm x 3.8 cm hypodense mass in the left adnexa. Correlation with ultrasound is recommended. Multiple phleboliths are seen in the pelvis. The patient is status post hysterectomy. Normal abdominal wall. Normal osseous structures. CT/Abdomen/Pelvis without Cont IMPRESSION: 4.4 cm x 3.8 cm hypodense mass in the left adnexa. This with ultrasound is recommended. The patient has a history of cholecystectomy although the gallbladder is seen in its normal anatomic location. Surgical clips are seen at that site. Electronically Signed: Cuate Reyes MD at 14:26 EDT ,
[2024-04-02 13:39] LABS: Bacteria 0 SEEN /hpf (None Seen); Mucous, Urine 0 SEEN /hpf (<or=2+); Red Blood Cells-Urine 0 SEEN /hpf (0-5); White Blood Cells 0 SEEN /hpf (0-5)
[2024-04-02 13:42] LABS: Absolute Lymphocyte Count 1.26 X10^3/uL (0.83-4.51); Absolute Neutrophil Count 2.6 X10^3/uL (2.0-7.7); Basophil# 0.04 X10^3/uL; Basophil% 0.9 % (0-1); Eosinophil# 0.05 X10^3/uL; Eosinophils% 1.1 % (0-5); Hematocrit 41.3 % (37-47); Hemoglobin 13.5 g/dL (12.0-15.0); Lymphocyte # 1.26 X10^3/ul (0.83-4.51); Lymphocyte % 28.4 % (19-41); Mean Corp Hgb Conc 32.7 g/dL (32-36); Mean Corpuscular Hgb 29.3 pg (27.0-32.0); Mean Corpuscular Volume 89.8 fL (81-99); Mean Platelet Vol. 10.6 fl (6.2-12.0); Monocyte# 0.44 X10^3/uL; Monocyte% 9.9 % (0-10); NRBC Flagged by Analyzer 0 % (0-5); Neutrophil # 2.64 X10^3/uL (2.7-7.7); Neutrophil % 59.5 % (47-70); Platelet Count 173 K/mm3 (150-450); RBC Distribution Width CV 12.3 % (11.6-14.6); RBC Distribution Width SD 40.5 fl (35.1-43.9); White Blood Count 4.4 K/mm3 (4.4-11.0)
[2024-04-02] MEDS: Ketorolac 15 MG/ML Vial IV (13:44)
[2024-04-02] MEDS: Ondansetron 4 MG/2 ML Vial IV (13:44)
[2024-04-02 13:47] LABS: Color, Urine Yellow (Yellow); Glucose, Dipstick Normal (Normal); Ketone-Dipstick Negative (Negative); Leukocyte Esterase-Dipstick Negative /ul (Negative); Nitrite-Dipstick Negative (Negative); Occult Blood-Urine Negative /ul (Negative); Protein-Dipstick Negative (Negative); Urine Bilirubin Dipstick Negative (Negative); Urine Clarity Sl. Cloudy (Clear); Urine Urobilinogen Normal (Normal); Urine pH 6.5 (5.0 - 8.0)
--- NOTE | 2024-04-02 13:48 | ED.RN ---
PT EXTREMELY PANICKED ABOUT RECEIVING PAIN MEDICATION. REQUESTS ATIVAN
[2024-04-02 13:54] LABS: Squamous Epithelial Cells - UA 0-5 SEEN /hpf (5-10)
[2024-04-02] MEDS: LORazepam 2 MG/ML Syringe 1 MG IV (14:01)
[2024-04-02 14:02] LABS: Anion Gap 5 (5-15); BUN 11 mg/dL (7-18); BUN/Creat Ratio 15.2 RATIO (10-20); Chloride 107 mmol/L (98-107); Creatinine, Serum 0.72 mg/dL (0.55-1.02); EST Glomerular Filtration Rate 94 mL/min (>60); Est Glom Filt Rate - Afr Amer 113 mL/min (>60); Estimated Creatinine Clearance 110.07 ml/min; Glucose 91 mg/dL (74-106); Potassium 3.8 mmol/L (3.5-5.1); Sodium Level 138 mmol/L (136-145)
--- NOTE | 2024-04-02 14:12 | EDS_ITS ---
HPI History of Present Illness Chief Complaint: Flank Pain Narrative Narrative: Patient is a 43-year-old female who is presenting to the ER today with chief complaint of left inguinal/left lower quadrant pain that started acutely at 1130 this morning. Patient was in a outpatient IOP session that she is in for anxiety. Patient is at bedside as well. Patient has a hysterectomy. Patient has had 1 ovarian cyst in the past she believes. Patient did pass 1 kidney stone 2 to 3 years ago, she was in the ER for that and then was sent home and passed at home. Patient thinks she might of passed a kidney stone a couple years ago at home, she never came to the ER. She has no flank pain or back pain. No fever or chills. No nausea or vomiting. Patient is very shaking, jittery, admittedly having panic attack and very anxious. Patient does take medication of Effexor daily and Xanax as needed to help with anxiety. Patient states she has taken 2 Xanax in the past month where she has needed it. Patient does not recall any type of heavy lifting, twisting or turning. No urinary frequency urgency or burning. No vaginal bleeding, discharge, no diarrhea or constipation, no other acute complaints. [facility] Medical History (Updated 04/02/24 @ 15:[address] Gilbert French, DO) Generalized anxiety disorder Panic disorder Major depressive disorder, recurrent, moderate Home Medications ?Medication ?Instructions ?Recorded ?Last Taken ?Type alprazolam 0.5 mg tablet (Xanax) 0.5 mg PO BID PRN panic attacks 30 03/03/24 Unknown Rx days #10 tabs estradiol 0.025 mg/24 hr weekly 1 patch transdermal QWEEK 03/03/24 Unknown History transdermal patch (Climara) venlafaxine 75 mg capsule,extended 75 mg PO DAILY 30 days #30 caps 03/03/24 Unknown Rx release 24 hr (Effexor XR) Allergy/AdvReac Type Severity Reaction Status Date / Time clindamycin Allergy Rash Verified 04/02/24 12:23 Penicillins Allergy Rash Verified 04/02/24 12:23 Sulfa (Sulfonamide Allergy Rash Verified 04/02/24 12:23 Antibiotics) Social History Smoking Status: Never smoker ROS ROS ED ROS Narrative REVIEW OF SYSTEMS: Unless otherwise stated in this report the patient's positive and negative responses for review of systems for constitutional, eyes, ENT, cardiovascular, respiratory, gastrointestinal, neurological, , musculoskeletal, and integument systems and related systems to the presenting problem are either stated in the history of present illness or were not pertinent or were negative for the symptoms and/or complaints related to the presenting medical problem. EXAM Physical Exam Narrative Exam Narrative: Vital signs reviewed and patient is not hypoxic. at bedside. General: The patient appears mild distress secondary to admit anxiety, tearful, slightly hyperventilating and shaking. Patient is resting uncomfortably on cart. Not toxic, lethargic, or listless. Skin: Warm, dry, no pallor noted. There is no rash noted. Head: Normocephalic, atraumatic Eye: Normal conjunctiva, no drainage, EOMI. PERRL. Ears, Nose, Mouth, and Throat: oral mucosa is moist. Nares patent. Mouth without vesicles. Cardiovascular: Regular Rate and Rhythm, no murmurs, gallops, or rubs Respiratory: Patient is in no distress, no accessory muscle use, lungs are clear to auscultation, no wheezing, rales or rhonchi Back: non-tender, no CVA tenderness bilaterally to percussion. NO CTLS midline or paraspinal tenderness to palpation. GI: Soft, moderate tenderness to palpation to the left lower quadrant/left inguinal area. No flank pain bilateral, no rash. No tenderness to palpation, no masses appreciated. No rebound, guarding, or rigidity noted. Musculoskeletal: The patient has full range of motion of all extremities and joints with no difficulty. With internal/external rotation of the flexed hip, it reproduces the pain to the left inguinal area, negative straight leg raising test bilateral. Patient has no motor, no sensory deficits. Neurological: A&O x4, normal speech, no focal neurological deficits. Psychiatric: Cooperative, admitted anxiety/panic attack, slightly shaking, which is controlled when redirected. Const Vital Signs: 04/02/24 12:21 04/02/24 14:20 Temperature 97.9 F Temperature Source Oral Pulse Rate 67 74 Respiratory Rate 18 18 Blood Pressure 126/85 H 114/78 Blood Pressure Mean 98 90 Pulse Ox 100 99 Oxygen Delivery Method Room Air Room Air MDM MDM MDM Narrative Medical decision making narrative: 1400 patient is feeling significantly better after Zofran, Toradol, and Ativan were given. Urine and initial CBC showed no acute findings. [address] shows a 4.4 cm x 3.8 cm hypodense mass in the left adnexa. Correlation with ultrasound is recommended. Patient has multiple phleboliths seen in the pelvis as well. Patient does not have a uterus. Patient has an ultrasound ordered at this time, transvaginal and they will do Doppler as well. Ultrasound result will be followed up with Dr. Stanford, and final disposition will be performed. Patient and were updated at this time at 1500 of ultrasound report, urine testing lab testing and CT testing and results. Lab Data Attestation: I reviewed the patient's lab results. Labs: Laboratory Results - last 24 hr 04/02/24 12:29 WBC 4.4 RBC 4.60 Hgb 13.5 Hct 41.3 MCV 89.8 MCH 29.3 MCHC 32.7 RDW Std Deviation 40.5 RDW Coeff of Nic 12.3 Plt Count 173 MPV 10.6 Immature Gran % (Auto) 0.200 Neut % (Auto) 59.5 Lymph % (Auto) 28.4 Barton % (Auto) 9.9 Eos % (Auto) 1.1 Baso % (Auto) 0.9 Absolute Neuts (auto) 2.6 Absolute Lymphs (auto) 1.26 Nucleated RBC % 0 Sodium 138 Potassium 3.8 Chloride 107 Carbon Dioxide 26.0 Anion Gap 5 BUN 11 Creatinine 0.72 Estim Creat Clear Calc 110.07 Est GFR (MDRD) Af Amer 113 Est GFR (MDRD) Non-Af 94 BUN/Creatinine Ratio 15.2 Glucose 91 Calcium 9.0 Urine Color Yellow Urine Clarity Sl. Cloudy Urine pH 6.5 Ur Specific [place] 1.010 Urine Protein Negative Urine Glucose (UA) Normal Urine Ketones Negative Urine Occult Blood Negative Urine Nitrite Negative Urine Bilirubin Negative Urine Urobilinogen Normal Ur Leukocyte Esterase Negative Urine RBC 0 SEEN Urine WBC 0 SEEN Ur Squamous Epith Cells 0-5 SEEN Urine Bacteria 0 SEEN Urine Mucus 0 SEEN Patient was given Zofran and Toradol. Patient did not want morphine. Patient was given 1 mg of IV Ativan. Patient has no patient patient. Patient urine shows no blood, lab work is normal. CT of the abdomen pelvis shows Radiography Diagnostic Testing: Clinical Impression(s) from Imaging Studies Abdomen/Pelvis CT 04/02/24 13:28 IMPRESSION: 4.4 cm x 3.8 cm hypodense mass in the left adnexa. This with ultrasound is recommended. The patient has a history of cholecystectomy although the gallbladder is seen in its normal anatomic location. Surgical clips are seen at that site. Electronically Signed: Cuate Reyes MD at 14:26 EDT , Discharge Plan Triage Chief Complaint: Flank Pain ED Provider: Gilbert French Dx/Rx/DC Orders Clinical Impression: Pelvic pain Prescriptions: No Action venlafaxine [Effexor XR] 75 mg capsule,extended release 24hr 75 mg PO DAILY 30 Days Qty: 30 1RF alprazolam [Xanax] 0.5 mg tablet 0.5 mg PO BID PRN (Reason: panic attacks) 30 Days Qty: 10 0RF estradiol [Climara] 0.025 mg/24 hr patch weekly 1 patch transdermal QWEEK Primary Care Provider: NOHELIA DIAZ Referrals: NOHELIA DIAZ [Other] Print Language: Setswana
[2024-04-02 14:20] VITALS: BP 114/78; PULSE 74; RESP 18; O2SAT 99
--- NOTE | 2024-04-02 14:46 | US_ITS ---
STUDY: ULTRASOUND TRANSVAGINAL CLINICAL: Female, 43 years old. LT ADNEXAL MASS, rule out torsion TECHNIQUE: Transvaginal COMPARISON: None. FINDINGS: Uterus not visualized status post hysterectomy Normal uterine cervix. Normal right ovary, measuring 2.5 x 1.9 x 1.7 cm. Normal arterial perfusion. There are multiple follicles without a dominant cyst. Normal left ovary, measuring 4.5 x 4.3 x 4.2 cm. Normal arterial perfusion There is a complex cyst measuring 3.8 x 4 x 3.6 cm Mild free fluid noted in the left adnexa US/Transvaginal Non- IMPRESSION: Complex cyst in the left adnexa measuring 3.8 x 4 x 3.6 cm possibly representing hemorrhagic cyst although neoplasm cannot be excluded. There is small amount of free fluid adjacent to the ovary. No definitive evidence for ovarian torsion Electronically Signed: Gilbert Fair MD at 16:16 EDT ,
[2024-04-02 16:00] VITALS: BP 104/76; PULSE 71; RESP 16; O2SAT 98
[2024-04-02 17:10] VITALS: BP 113/75; PULSE 75; RESP 16; TEMP 36.8; O2SAT 98
== END 2024-04-02 17:16 | disposition home or self-care (01) ==
PROVIDERS: Emergency Provider Emergency Medicine; Referring Provider Emergency Medicine; Visit Provider Emergency Medicine
DX: N83.202 Unspecified ovarian cyst, left side (principal); R93.5 Abnormal findings on diagnostic imaging of other abdominal regions, including retroperitoneum; F41.0 Panic disorder [episodic paroxysmal anxiety]; I87.8 Other specified disorders of veins; Z79.899 Other long term (current) drug therapy; Z87.442 Personal history of urinary calculi; Z90.710 Acquired absence of both cervix and uterus
CPT/HCPCS: 74176; 76830; 80048; 81001; 85025; 93976; 96374; 96375; 99283; J7040; A4216; J2405

== ENCOUNTER 2024-05-06 08:00 | Outpatient (RCR) | payer BC, SELFPAY ==
--- NOTE | 2024-05-06 14:00 | BH.SGPN.GN ---
Behaviors/Verbalizations/Mental Status: []Pt alert and oriented, neatly dressed and groomed. Eye contact good. Motor activity appropriate. Speech within normal limits. Affect congruent, mood euthymic and stressed. Thoughts linear, logical, no signs of hallucinations or delusions. Client Response/Progress/Benefit: [] Pt responded well to session, attentive and providing input. Pt shared she met with her therapist for the first time and has been taking her medications consistently. Pt reports using dialectical thinking, journaling, and setting boundaries with herself to cope with stressor. With peers, pt discussed things that would sabotage one's mental health wellness and added it to the garden metaphor. Pt identified things pt personally does to sabotage as isolating, signing up for too much, being a perfectionist, and not asking for help. Pt attentive during psychoeducation on ways to reduce self-sabotage and pt selected wanting to communicate her self-sabotage urges as the skill she is going to use. Pt appeared to benefit from learning skills and gaining awareness of self-sabotaging behaviors. Pt will continue IOP aftercare to promote utilization of healthy coping skills to improve mood stability. Narrative Note: []
--- NOTE | 2024-05-06 14:35 | BH.COMM ---
Communication Note Communication with Client Communication Note: Patient completed IOP and presents today to start relapse prevention group which meets once weekly (1.5 hours) for 8 weeks. Case discussed with Dr. More with plan to admit with dx of F33.2
--- NOTE | 2024-05-06 16:42 | BH.MTP ---
Master Treatment Plan Patient Information Program Physician:: Dr. Macarena Lee Primary Therapist:: Isabella SIMMONS Psychiatric Diagnoses Psychiatric Diagnoses:: Major depressive disorder, recurrent, moderate; Panic disorder F 41.0; Generalized anxiety disorder Diagnosis Code(s):: F 33.2 Estimated LOS Estimated LOS (in weeks):: 8 Problem/Goal #1 Problem/Goal #1 Stated Goal:: client will maintain or see a reduction in symptoms AEB client score on the DSM 5 cross-cutting measure and improve client's daily functioning. Objectives Objective #1: Stated Objective: Client will continue to consistently apply healthy coping skills to maintain progress made in IOP tx. Interventions: Through group therapy, client will review warning signs and triggers as well as healthy coping skills learned in IOP tx to successfully maintain gains while transitioning into outpatient therapy. Discharge Criteria: Client will have accomplished this goal when client's score on the DSM-5 cross-cutting measure has maintained or reduced over a 8 week period. Target Date: 07/01/24 Review Date: 05/27/24 Status: open Objective #2: Stated Objective: Client will learn and utilize 2-3 maintenance strategies to prevent decompensation from original IOP DSM-5 scores. Interventions: Through group therapy, client will be provided with education on healthy maintenance behaviors, relapse prevention techniques, and healthy coping strategies. Discharge Criteria: Client will have accomplished this goal when can report using at least 2 maintenance skills to prevent decompensation compared to original IOP DSM-5 scores Target Date: 07/01/24 Review Date: 05/27/24 Status: open
--- NOTE | 2024-05-13 14:00 | BH.SGPN.GN ---
Behaviors/Verbalizations/Mental Status: []Pt alert and oriented, casually dressed and groomed. Eye contact good. Motor activity appropriate. Speech within normal limits. Affect congruent, mood euthymic. Thoughts linear, logical, no signs of hallucinations or delusions. Client Response/Progress/Benefit: []Pt receptive of session, engaged throughout. Pt shared they have met with their outpatient provider since last session and are excited to be working with a new psychiatrist and counselor. Pt has been taking medications consistently and reports utilizing healthy coping skills outside of aftercare. These skills included: communicating with supports, checking in with herself, and using dialectical thinking. ?Receptive of discussion on sitting with the uncomfortable and emotional urges. Pt contributed to the discussion of distress tolerance and how building distress tolerance can help improve mood stability and resilience. Pt wants to keep building distress tolerance by not acting on urges to seek reassurance after setting a boundary or asking for help. Pt seemed to benefit from support from peers and increasing understanding of distress tolerance. Will continue aftercare to reinforce healthy coping skills and improve daily functioning. Narrative Note: []
--- NOTE | 2024-05-27 14:00 | BH.SGPN.GN ---
Behaviors/Verbalizations/Mental Status: []Client alert and oriented, casually dressed and groomed. Eye contact good. Motor activity appropriate. Speech within normal limits. Affect congruent, mood euthymic and stressed. Thoughts linear, logical, no signs of hallucinations or delusions. Client Response/Progress/Benefit: [] Pt responded well to session AEB sharing and listening attentively to others. Pt reports following up with both therapy and psychiatry, and pt reports she is taking her medications consistently. Pt stated using asking for help, affirmations, and sitting with the uncomfortable as primary coping skills used this past week. Pt participated in group discussion defining vulnerability, how and why we avoid it, and the benefits. Pt was an active participant and provided personal examples of being vulnerable and the positive things that came with this. Pt stated that pt would like to work on being vulnerable this week by reducing her perfectionistic behaviors and letting others help. Will continue aftercare treatment to reinforce healthy coping skills and promote gains. Narrative Note: []
--- NOTE | 2024-05-27 14:48 | BH.TPR ---
Treatment Plan Review Demographics Date of Admission:: 05/06/24 Date of Treatment Plan Review:: 05/27/24 Admitting Diagnoses:: Major depressive disorder, recurrent, moderate; Panic disorder F 41.0; Generalized anxiety disorder Current Diagnoses:: Major depressive disorder, recurrent, moderate; Panic disorder F 41.0; Generalized anxiety disorder Patient Status Patient's Response to Treatment:: Pt continues to respond well to treatment AEB pt's consistent attendance, ongoing attentiveness and engagement in group discussions, and continued reporting use of skills outside treatment environment. Pt's symptoms are still 48% lower than they were at IOP admission. Status of Current Problems and Symptoms: Pt reports ongoing anxiety and depressive symptoms that have decreased in intensity, but are still present. Pt has been working on trauma therapy with her outpatient therapist, so pt reports some days she experiences worse symptoms. Pt also reports stressors with work, family, and her marriage as well. Progress Problem #1: Problem Name:: Pt will maintain or see a reduction in sx Status of Goals:: Obj 1 - Complete with maintenance encouraged. Pt's depression decreased by 57% compared to IOP admission and anxiety has decreased by 40% compared to IOP admission. Obj 2 - complete with ongoing work encouraged. Pt had been reporting using opposite action, self-compassion, exercise, and dialectical thinking. Pt is also working on trauma therapy with her outpatient therapist. Team Recommendations:: Recommended client continue IOP aftercare group in addition to attending regular outpatient counseling in order to maintain gains. Pt also recommended to continue working on self-compassion, practice self-care, and setting realistic goals.
== END 2024-06-01 23:59 ==
LOC: BHOG 08:00
PROVIDERS: PCP Family Medicine; Referring Provider Psychiatry & Neurology Psychiatry; Visit Provider Psychiatry & Neurology Psychiatry
DX: F33.1 Major depressive disorder, recurrent, moderate (principal); F41.1 Generalized anxiety disorder; F41.0 Panic disorder [episodic paroxysmal anxiety]; Z79.899 Other long term (current) drug therapy
CPT/HCPCS: 90853

== ENCOUNTER 2024-06-03 07:11 | Outpatient (RCR) | payer BC, SELFPAY ==
--- NOTE | 2024-06-03 14:00 | BH.SGPN.GN ---
Behaviors/Verbalizations/Mental Status: []Pt alert and oriented, casually dressed and groomed. Eye contact fair. Motor activity appropriate. Speech within normal limits. Affect constricted, mood depressed. Thoughts linear, logical, no signs of hallucinations or delusions. Client Response/Progress/Benefit: []Pt receptive of session, engaged throughout. Pt reported she has seen her therapist, has appointment scheduled with psychiatry, and is taking her medications. Pt reported suing coping skills of dialectical thinking and positive affirmations. Pt stated she completed homework by focusing on decreasing her perfectionism. Pt stated it was uncomfortable but could see benefit to continuing to work on this. Receptive of discussion on ?Chapters of my life? poem. Pt contributed to the discussion of the different chapters one may go through and how they connect with current mental health progress. Pt completed self-reflection on what chapter she believes she is in. In processing of situation that happened during group check-in with another group member client stated she was just trying to connect with this other group member but it not appear that person was ready. Pt stated she felt like situation was handled well by therapist because pt's anger did not seem to be decreasing. This ghost writer helped pt and rest of group process thoughts and feelings about the situation because it did change group dynamics at the beginning of group. Pt seemed to benefit from support from peers and increasing understanding of ?Chapters of my life?. Will continue IOP aftercare to promote use of healthy coping skills and prevent decompensation.
--- NOTE | 2024-06-10 14:00 | BH.SGPN.GN ---
= Behaviors/Verbalizations/Mental Status: []Pt alert and oriented, casually dressed and groomed. Eye contact good. Motor activity appropriate. Speech within normal limits. Affect congruent, mood anxious. Thoughts linear, logical, no signs of hallucinations or delusions. Client Response/Progress/Benefit: []Pt responded well to session AEB sharing and listening attentively to others. Pt has scheduled outpatient mental health appointments for weekly counseling and regular med management and reports consistent medication compliance. Pt reports using skills of deep breathing, opposite action, and boundaries to maintain mood stability. Pt participated in group discussion defining affirmations and why they are important. Pt provided insight throughout clinician?s presentation of tips for writing personal affirmations and wrote their own affirmations, including ?My opinion does matter?, ?I am a good mom? and ?I have worth and value as an individual?. Pt appeared to benefit from increased knowledge of affirmation writing skills and creating their own affirmation statements to remind themselves of outside tx environment. Will continue aftercare tx to promote consistent mental health maintenance and prevent decompensation. Narrative Note: []
--- NOTE | 2024-06-17 14:00 | BH.SGPN.GN ---
Behaviors/Verbalizations/Mental Status: []Client alert and oriented, neatly dressed and groomed. Eye contact good. Motor activity appropriate. Speech within normal limits. Affect congruent, mood euthymic. Thoughts linear, logical, no signs of hallucinations or delusions. Client Response/Progress/Benefit: []Pt responded well to session, providing support to peers and contributing. Pt reports meeting with her therapist, taking her meds, and using healthy coping skills. Pt reported using skills such as; deep breathing, journaling, thought challenging, and affirmations to cope with stressors. Pt engaged in discussion of problem-solving, learned the ABCDEs of problem-solving, and participated in the activity. Pt, along with peers, had to use outside of the box thinking and team work to accomplish the goal. Pt shared she learned that she tends to struggle with taking total control when she is faced with a problem, so pt benefitting from having to rely on others for help. Pt will work on problem-solving skills for homework. Pt will continue IOP aftercare to reinforce healthy coping skills and promote mental wellness. Narrative Note: []
--- NOTE | 2024-07-01 14:00 | BH.SGPN.GN ---
Behaviors/Verbalizations/Mental Status: []Pt alert and oriented, neatly dressed and groomed. Eye contact good. Motor activity appropriate. Speech within normal limits. Affect congruent, mood euthymic and anxious. Thoughts linear, logical, no signs of hallucinations or delusions. Client Response/Progress/Benefit: []Pt responded well to session, completed their self-reflection worksheet. Pt noted they have met with their therapist since last session and used coping skills like deep breathing, grounding, asking for help, looking at evidence against, opposite action, and challenging inappropriate guilt. Pt also noted they completed last weeks homework and found it helpful. Pt shared she asked for an emergency session this week as pt had a recent setback with panic attacks. Pt engaged well during the discussion of the components of self-compassion. Pt connected with the benefits of self-compassion and participated in the activity of reframing a recent setback using self-compassion. Pt used self-compassion to combat negative self-talk and assisted peers in identifying examples of the three components of self-compassion.?Pt appeared to benefit from practicing self-compassion and connecting with peers. Will continue aftercare to promote mood stability and reinforce healthy coping skills.? Narrative Note: []
--- NOTE | 2024-07-01 15:24 | BH.DS ---
Discharge Summary Demographics Date of Admission:: 05/06/24 Discharge Date: 07/01/24 Presenting Problems at Admission:: Pt admitted to [facility] level of care due to panic attacks, depression, and overall anxiety symptoms hindering pt's ability to work and function at her baseline. Pt was admitted to [facility] aftercare to maintain gains made in IOP tx, further reduce symptoms, and improve distress tolerance. Discharge Diagnoses:: Major depressive disorder, recurrent, moderate; Panic disorder F 41.0; Generalized anxiety disorder Reason for Discharge:: Pt has accomplished tx goals AEB ability to maintain mood stability and gains made in IOP. Treatment Progress During Treatment & Response: Pt responded well to treatment AEB pt's consistent attendance, ongoing attentiveness and engagement in group discussions, and continued reporting use of skills outside treatment environment. Pt's symptoms are 71% lower than they were at IOP admission per the DSM-5. Pt's anxiety is 70% lower, depression is 57%, and her anger is 100% lower than at IOP admission. Pt has been able to maintain consistent progress for an additional 8 weeks following IOP tx. Issues Still to be Addressed:: Pt is engaged in outpatient therapy and she is working on trauma-focus treatment with Denise Killian. Pt is also working on increasing acceptance, communicating boundaries and needs, and gaining self-compassion. Discharge Recommendations/Instructions:: Pt will follow up with Bebe Delgadillo through [facility] for medication management and Denise Killian for individual therapy through [facility]. Discharge Handout
== END 2024-07-02 07:10 | disposition home or self-care (01) ==
LOC: BHOG 07:11
PROVIDERS: PCP Family Medicine; Referring Provider Psychiatry & Neurology Psychiatry; Visit Provider Psychiatry & Neurology Psychiatry
DX: F33.1 Major depressive disorder, recurrent, moderate (principal); F41.0 Panic disorder [episodic paroxysmal anxiety]; F41.1 Generalized anxiety disorder
CPT/HCPCS: 90853

== ENCOUNTER → 2024-06-07 | Outpatient (CLI) | payer BC, SELFPAY ==
--- NOTE | 2024-06-07 15:00 | US_ITS ---
HISTORY: OVARIAN CYST. TECHNIQUE: Transvaginal pelvic ultrasound was performed with braswell scale , spectral Doppler, and color Doppler evaluation. 76 images. COMPARISON: 04/02/2024. FINDINGS: UTERUS: Surgically absent. RIGHT OVARY: 0.9 x 1.4 x 2 cm with a 9 mm dominant follicle. Vascular flow demonstrated. LEFT OVARY: 1.6 x 1.9 x 2.3 cm, partially obscured by overlying bowel gas. Vascular flow demonstrated. 1.4 x 1.4 x 1.5 cm cyst. FREE FLUID: None. URINARY BLADDER: Partially distended at 79 cc. US/Transvaginal Non- IMPRESSION: 1.5 cm left ovarian cyst, previously 4 cm. Electronically Signed: Janneth Freeman MD at 12:42 EST ,
== END | disposition home or self-care (01) ==
LOC: US 14:55
PROVIDERS: PCP Family Medicine
DX: N83.292 Other ovarian cyst, left side (principal); Z79.890 Hormone replacement therapy
CPT/HCPCS: 76830